=== PATIENT | female | born 1980 | race Caucasian/White ===

== ENCOUNTER 2022-02-22 09:13 | Outpatient (CLI) | payer BC, SELFPAY ==
[2022-02-22 12:40] LABS: Chloride* 107 mmol/L (96-114)
[2022-02-22 12:41] LABS: Potassium* 4.3 mmol/L (3.6-5.1); Sodium* 139 mmol/L (135-149)
[2022-02-22 12:43] LABS: Alkaline Phosphatase* 60 U/L (40-150); Aspartate Amino Transferase* 27 U/L (12-35); Bilirubin Total* 0.7 mg/dL (0.1-1.5); Blood Urea Nitrogen* 11 mg/dL (5-24); Carbon Dioxide* 25 mmol/L (20-32); Cholesterol* 227 mg/dL (90-199); Creatinine* 0.7 mg/dL (0.5-1.5); Estimated Glomerular Filt Rate 110 ml/min; Glucose* 92 mg/dL (60-115); Total Protein* 7.2 g/dL (6.0-8.3); Triglycerides* 98 mg/dL (40-149)
[2022-02-22 12:44] LABS: Alanine Aminotransferase* 22 U/L (4-35); Calcium* 9.1 mg/dL (8.4-10.6); HDL Cholesterol* 47 mg/dL (>=50); LDL Cholesterol Calculated 160 mg/dL (<100)
[2022-02-22 12:57] LABS: Vitamin D 25 Hydroxy* 22 ng/mL (30-80)
== END 2022-02-22 09:14 | disposition home or self-care (01) ==
PROVIDERS: PCP Internal Medicine; Visit Provider Internal Medicine
DX: Z01.419 Encounter for gynecological examination (general) (routine) without abnormal findings (principal); E78.00 Pure hypercholesterolemia, unspecified
CPT/HCPCS: 80053; 80061; 82306

== ENCOUNTER 2022-03-01 09:58 | Outpatient (CLI) | payer BC, SELFPAY ==
--- NOTE | 2022-03-01 10:00 | CRLHL7_ITS ---
For Patients: As a result of the Century Cures Act, medical imaging exams and procedure reports are released immediately into your electronic medical record. You may view this report before your referring provider. If you have questions, please contact your health care provider. Indication: left sided chest wall pain hx: Precancerous adenocarcinoma Technique: Post contrast CT chest. 75 cc Isovue 370 intravenous contrast. Please note that all CT scans at this facility use dose modulation, iterative reconstruction, and/or weight-based dosing when appropriate to reduce radiation dose to as low as reasonably achievable. Comparison: None Findings: 4 millimeter nodule within the lingula, . Peripheral nodule within the right middle lobe measuring 4 millimeters, . Linear areas of scarring are present within the lingula and right middle lobe. Bilateral breast implants are intact. The ribcage is also intact. No axillary, mediastinal or hilar adenopathy. Residual thymic tissue is present. Upper abdomen normal. Impression: Intact ribcage. No destructive lesion or fracture. No adenopathy. Intact implants. 4 millimeter nodule in the right middle lobe and 4 millimeter nodule in the lingula. 1 year follow up suggested. Scarring within the right middle lobe and lingula. Please note that all CT scans at this facility use dose modulation, iterative reconstruction, and/or weight-based dosing when appropriate to reduce radiation dose to as low as reasonably achievable. Dictated by Narciso Alcantar MD @ 03/05/2022 8:55:01 AM (Electronically Signed)
== END 2022-03-01 09:59 | disposition home or self-care (01) ==
PROVIDERS: PCP Internal Medicine; Visit Provider Internal Medicine
DX: R07.89 Other chest pain (principal); R91.8 Other nonspecific abnormal finding of lung field
CPT/HCPCS: 71260; Q9967

== ENCOUNTER 2023-04-09 13:20 | Outpatient (CLI) | payer BC, SELFPAY ==
--- OUTSIDE RECORDS SUMMARY | 2023-04-09 13:24 | XMS_ITS | Clinical Summary ---
Author Name Unknown Organization [facility] Address [address] [place] [address] Care Team Providers Care Vice President Underwriting Name Role Phone Unavailable Primary Care Provider Unavailabl e Source Comments Patient records contain information from all sites at [facility]. For routine questions regarding patient records, call [phone] during business hours, M-F 8:00 AM - 5:00 PM Central Time. Record requests for emergency care only can be directed to [phone] at any time.[facility] Allergies Active Allergy Reactions Criticality Noted Date Comments Flynn Pollen Other (see comments) Medium 09/02/2018 Running nose Medications Medication Sig Dispensed Refills Start Date End Date Status triamcinolone (KENALOG) 0.1 % cream Apply 1 application topically as needed. 11 08/11/2018 Active pimecrolimus (ELIDEL) 1 % cream Apply 1 application topically as needed. 1 07/22/2018 Active VENTOLIN HFA 90 mcg/actuation inhaler Take 2 puffs by mouth every 4 (four) hours as needed. 0 07/10/2018 Active loratadine (CLARITIN) 10 mg tablet Take 10 mg by mouth daily. 0 Active budesonide-formot Stella (SYMBICORT) 160-4.5 mcg/actuation inhaler Inhale 2 puffs daily. Rinse mouth with water after use to reduce aftertaste and incidence of candidiasis. Do not swallow. 0 Active clobetasoL (TEMOVATE) 0.05 % ointment Use 3 times weekly to upper vulva and 2 times weekly to perianal tissues. 60 g 3 04/03/2023 Active clobetasoL (TEMOVATE) 0.05 % ointment Use 3 times weekly to upper vulva and 2 times weekly to perianal tissues. 60 g 3 02/02/2022 04/03/2023 Discontinued (Reorder) Active Problems Problem Noted Date Diagnosed Date Hysterectomy Abdominal Status Post 01/28/2020 Overview: Added automatically from request for surgery [id number] Adenocarcinoma Cervix In Situ (Severe Dysplasia) 01/03/2020 Post Traumatic Stress Disorder Unspecified 08/26 Abnormal Pap Smear Cervix 08/15/2018 Overview: Added automatically from request for surgery [id number] Atypical Glandular Cells Uncertain Significance 08/15/2018 Overview: Added automatically from request for surgery [id number] Sinusitis Chronic 03/16/2016 Polyp Nasal 12/19/2015 Wheezing 12/19/2015 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 Rash (Primary Dx) 04/03/2023 Clinical Communication [facility] in [place], [place] [address] [place] [address] Jahaira John M.D. 03/27/2023 2:05 PM SENIOR DEVELOPER - 03/27/2023 11:59 PM SENIOR DEVELOPER Hospital Encounter Department of Radiology in [place], [place] [address] [place] [address] Jahaira John M.D. Screening Mammogram Breast Cancer Discharge Disposition: Home or Self Care 03/05/2023 Orders Only Department of Ophthalmology in [place], [place] [address] [place] [address] Pilar Ghosh M.D. 03/04/2023 Clinical Communication Department of Ophthalmology in [place], [place] [address] [place] [address] Pilar Ghosh M.D. MOHS to schedule 02/15/2023 2:10 PM SENIOR DEVELOPER Lab RST RO LMP [address] [place] [phone] Pilar Ghosh M.D. Lesion Eyelid 02/13/2023 Clinical Communication Department of Ophthalmology in [place], [place] [address] [place] [phone] Pilar Ghosh M.D. Referral for MOHS 02/13/2023 Clinical Communication Department of Ophthalmology in [place], [place] [address] [place] [phone] Pilar Ghosh M.D. 02/13/2023 Ancillary Procedure Department of Ophthalmology 02/12/2023 Clinical Communication Department of Ophthalmology in [place], [place] [address] [place] [address] Provider, Unknown Appt Request from Last 3 Months Immunizations Name Administration Dates Next Due 9vHPV 03/02/2022,06/21/2020,04/22/2020 DTaP (Infanrix, [employer]) 06/13/1983 H1N1 Inj 01/19/2009 HepB Adult 07/16/2022(Deferred: Other - check with pcp) Influenza, Unspecified 07/16/2022(Deferred: Suha ent Refused) Polio, Unspecified 06/13/1983 SARS-COV-2 (COVID-19) - PFIZ ER (12 years or older) 07/16/2022(Deferred: Patient decision) Tdap 07/10/2018 influenza vaccine quad (FLUZONE/FLUARIX) (6 months and older)(PF) 01/21/2020,09/02/2018,01/19/2009 Family History Medical History Relation Name Comments Coronary artery disease Father Father Colon cancer Maternal Grandfather Grandpa Colon polyps Maternal Grandfather Grandpa Breast cancer Maternal Grandmother Grandma Rheum arthritis Maternal Grandmother Grandma Asthma Mother Mom Diabetes Mother Mom Hypertension Mother Mom Liver cancer Mother Mom Liver disease Mother Mom Autoimmune Skin cancer Mother Mom Squamous cell carcinoma Mother Mom Stroke Mother Mom Coronary artery disease Paternal Grandfather Grandpa Coronary artery disease Paternal Grandmother Grandma No Known Problems Son 1 No Known Problems Son 2 Cervical cancer Neg Hx Endometrial cancer Neg Hx Ovarian cancer Neg Hx Relation Name Status Comments Father Father Maternal Grandfather Grandpa Maternal Grandmother Grandma Mother Mom Paternal Grandfather Grandpa Paternal Grandmother Grandma Son 1 Son 2 Social History Tobacco Use Types Packs/Day Years Used Date Smoking Tobacco: Never Smokeless Tobacco: Never Tobacco Cessation:Counseling Given: Not Answered Alcohol Use Standard Drinks/Week Comments Yes 1 (1 standard drink = 0.6 oz pur e alcohol) Approx once per month Humiliation, Afraid, Rape, and Kick questionnair e Answer Date Recorded Within the last year, have y ou been afraid of your partner or ex-partner? No 02/23/2022 Within the last year, have y ou been humiliated or emotionally abused in other ways by your partner or ex-partner? No Within the last year, have y ou been kicked, hit, slapped, or otherwise physically hurt by your partner or ex-partner? No 02/23/2022 Within the last year, have y ou been raped or forced to have any kind of sexual activity by your partner or ex-partner? No 02/23/2022 Social Connection and Isolat ion Panel [NHANES] Answer Date Recorded In a typical week, how many times do you talk on the phone with family, friends, or neighbors? More than three times a week 02/23/2022 How often do you get togethe r with friends or relatives? Once a week 02/23/2022 How often do you attend chur or tenriism services? 1 to 4 times per year 02/23/2022 Do you belong to any clubs o r organizations such as sabianist groups, unions, fraternal or athletic groups, or school groups? No 02/23/2022 How often do you attend meet ings of the clubs or organizations you belong to? Never 02/23/2022 Are you , , di vorced, , never , or living with a partner? Patient declined 02/23/2022 AUDIT-C Answer Date Recorded Q1: How often do you have a drink containing alc ohol? Monthly or less 02/23/2022 Q2: How many drinks containi ng alcohol do you have on a typical day when you are drinking? 1 or 2 02/23/2022 Q3: How often do you have si x or more drinks on one occasion? Never 02/23/2022 Overall Financial Resource Strain (CARDIA) Answe r Date Recorded How hard is it for you to pa y for the very basics like food, housing, medical care, and heating? Patient declined 02/23/2022 PHQ-2 Answer Date Recorded PHQ-2 Score 2 03/12/2019 [facility] - Occupational Stress Questionnaire Answer Date Recorded Do you feel stress - tense, restless, nervous, or anxious, or unable to sleep at night because your mind is troubled all the time - these days? Not at all 02/23/2022 Exercise Vital Sign Answer Date Recorde d On average, how many days pe r week do you engage in moderate to strenuous exercise (like a brisk walk)? 1 day 02/23/2022 On average, how many minutes do you engage in exercise at this level? 20 min 02/23/2022 Hunger Vital Sign Answer Date Recorded Within the past 12 months, y ou worried that your food would run out before you got the money to buy more. Never true 02/24/20 22 Within the past 12 months, t he food you bought just didn't last and you didn't have money to get more. Never true 02/23/2022 PRAPARE - Transportation Answer Date Re corded In the past 12 months, has l ack of transportation kept you from medical appointments or from getting medications? No 04/2021 In the past 12 months, has l ack of transportation kept you from meetings, work, or from getting things needed for daily living? No 02/23/2022 Housing Stability Vital Sign Answer Jakob e Recorded In the last 12 months, was t here a time when you were not able to pay the mortgage or rent on time? No 02/23/2022 In the last 12 months, how many places have you lived? 1 02/23/2022 In the last 12 months, was t here a time when you did not have a steady place to sleep or slept in a nursing home (including now)? No 02/23/2022 Nutrition Answer Date Recorded Nutrition: EVOO Fat Source Yes 02/23 On average, how many serving s of fruits and vegetables do you eat per day (serving size is equal to 1 cup or approximately the size of a tennis ball)? 0-1 02/23/2022 Dental Answer Date Recorded Dental: Regular Dentist Yes 02/24/20 Employment Answer Date Recorded Employment status Employed and actively working without restrictions 02/23/2022 Education Answer Date Recorded What is the highest level of school you have completed or the highest degree you have received? Professional school degree (e.g., , DDS, DVM, NAYELI) 09/01/2018 Sex and Gender Information Value Date Recorded Sex Assigned at Female 02/23/2022 10:41 AM SENIOR DEVELOPER Gender Identity Female 02/23/2022 10:41 AM SENIOR DEVELOPER Sexual Orientation Straight 02/23/2022 10 :41 AM SENIOR DEVELOPER Last Filed Vital Signs Vital Sign Reading Time Taken Comments Blood Pressure 138/84 05/18/2022 7:58 PM SENIOR DEVELOPER Pulse 88 05/18/2022 7:58 PM SENIOR DEVELOPER Temperature 36.6 ??C (97.9 ??F) 04/06/2020 9:19 AM CS T Respiratory Rate 16 05/18/2022 7:58 PM SENIOR DEVELOPER Oxygen Saturation 96% 05/18/2022 7:58 PM SENIOR DEVELOPER Inhaled Oxygen Concentration - - Weight 83.2 kg (183 lb 6.8 oz) 07/20/2022 3:51 P M CDT Height 165.9 cm (5' 5.32) 02/23/2022 12:[address] Body Mass Index 30.23 02/23/2022 12:47 PM SENIOR DEVELOPER Plan of Treatment Upcoming Encounters Date Type Department Care Team (Latest Contact Info) Description 04/10/2023 10:20 AM SENIOR DEVELOPER Comprehensive Visit Department of Dermatology in [place], [place] [address] [place] [phone] Rossi Duran M.D. [address] [place] [phone] 05/07/2023 10:30 AM SENIOR DEVELOPER Ancillary Procedure Department of Ophthalmology in [place], [place] [address] [place] [phone] Pilar Ghosh M.D. [address] [place] [phone] 05/07/2023 11:00 AM SENIOR DEVELOPER Comprehensive Visit Department of Ophthalmology in [place], [place] [address] [place] [phone] Pilar Ghosh M.D. [address] [place] [phone] 05/09/2023 8:00 AM SENIOR DEVELOPER Procedure visit Department of Dermatology in [place], [place] [address] [place] [phone] Mitchel Recinos M.D., M.S. [address] [place] [phone] 05/09/2023 1:10 PM SENIOR DEVELOPER Hospital Encounter [facility] [address] [place] [phone] Pilar Ghosh M.D. [address] [place] [phone] 05/21/2023 10:30 AM SENIOR DEVELOPER Ancillary Procedure Department of Ophthalmology in [address] [phone] Pilar Ghosh M.D. [address] [place] [phone] 05/21/2023 11:00 AM SENIOR DEVELOPER Office Visit Department of Ophthalmology in [place], [place] [address] [place] [phone] Pilar Ghosh M.D. 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 05/09/2023 1:10 PM SENIOR DEVELOPER Health Maintenance Due Date Last Done Comments Hepatitis B Vaccines (1 of 3 - 3-dose series) 1978 COVID-19 Vaccine (#1) 1978 Pneumococcal vaccine (0-64 y ears) (1 of 2 - PCV) 1984 Asthma Action Plan 11/25/2018 Asthma Control Test Questionnaire 11/25/2018 Influenza Vaccine (#1) 2022 , 09/02/2018, 01/19/2009 Depression Screening (Annual PHQ-2) 03/25/2023 Mammogram 03/27/2024 03/27/2023, 04/26, 03/02/2022, Additional history exists Lipid (Cholesterol) Screening 01/20/2025 01/21/2020 DTaP,Tdap,and Td Vaccines (3 - Td or Tdap) 07/10/2028 07/10/2018, 06/13/1983 Hepatitis C Screening Completed 01/21/2020 HPV Vaccines Completed 03/02/2022, 05/25, 04/22/2020 Medical Devices Implanted Type Area Shuttle Truck Driver Device Identifier Shelf Expiration Date Model / Serial / Lot Breast Implant Breast Implant Bilateral: Breast Ear-Dornhoffer [place] Partial Windows - Cruz [id number] Implanted:Qty: 1 on 02/13/2016 Ear Implant Other/Legacy - See Implant Description [facility] 687 / / Description:Device Manufactu rer - [facility]. Body Location - Other. Right. Device Status Text - AUD [id number]. Titanium Dornhoffer implant line PORP: MR Conditional 1.5T or 3T scanning. First level operating mode. Updated by Ruth Castillo, 03/08/22. Procedures Procedure Name Priority Date/Time Associated Diagnosis Comments BI BREAST SCREENING BILATERAL WITH TOMOSYNTHESIS RAD - Routine (most inpatients and all outpatients) 03/27/2023 2:42 PM SENIOR DEVELOPER Screening Mammogram Breast Cancer OPHTHALMOLOGY IMAGE EXAM Routine 02/13/2023 12:00 AM SENIOR DEVELOPER PATHOLOGY REVIEW OF OUTSIDE MATERIAL Routine 01/31/2023 9:20 AM SENIOR DEVELOPER Lesion Eyelid from Last 3 Months Results * BI Breast Screening Bilateral with Tomosynthesis (03/27/2023 2:42 PM SENIOR DEVELOPER) Anatomical Region Laterality Modality Breast, Breast Imaging RST L OS, Breast Imaging ARZ LOS, Breast Imaging FLA LOS Bilateral Mammography Impressions 03/28/2023 9:18 AM SENIOR DEVELOPER Negative. RECOMMENDATION: ??Annual Screening Mammogram ASSESSMENT: ??BI-RADS: 1: Negative. Narrative 03/28/2023 9:18 AM SENIOR DEVELOPER EXAM: ??BI BREAST SCREENING BILATERAL WITH TOMOSYNTHESIS Current study was evaluated with a Computer Aided Detection (CAD) system. INDICATION: ??Screening mammogram. COMPARISON: ??Prior exam(s) were available and reviewed for comparison. DENSITY: ??c. The breast(s) are heterogeneously dense, which may obscure small masses. FINDINGS: ??No findings of malignancy. ??No significant change since prior exam. Bilateral retropectoral saline implants. Procedure Note Yaa Tam M.D. - 03/28/2023 EXAM: BI BREAST SCREENING BILATERAL WITH TOMOSYNTHESIS Current study was evaluated with a Computer Aided Detection (CAD) system. INDICATION: Screening mammogram. COMPARISON: Prior exam(s) were available and reviewed for comparison. DENSITY: c. The breast(s) are heterogeneously dense, which may obscuresmall masses. FINDINGS: No findings of malignancy. No significant change since priorexam. Bilateral retropectoral saline implants. IMPRESSION: Negative. RECOMMENDATION: Annual Screening Mammogram ASSESSMENT: BI-RADS: 1: Negative. Jahaira John M.D. IMG BI PROCEDURES * Eyes Outside Images-Ophthalmology Image Exam (02/13/2023 12:00 AM SENIOR DEVELOPER) Narrative IIMS - 02/13/2023 8:25 AM SENIOR DEVELOPER This order has been created and auto-finalized to support the import of images acquired without order. The clinical documentation to support these images can be found on the encounter that produced images. Provider Not In System IMG NON RAD IMAGI NG PROCEDURES IIMS NA * Pathology Review of Outside Material (01/31/2023 9:20 AM SENIOR DEVELOPER) 02/26/2023 3:56 PM SENIOR DEVELOPER DTL Report electronically signed by Dimitry J. Flotte, M.D. I verify that I have examined all relevant slides/materi als for the specimen(s) and rendered or confirmed the diagnosis. 02/26/2023 3:56 PM SENIOR DEVELOPER DTL Material Received A. [id number]: Left eyelid ? 1 stained slide 02/26/2023 3:56 PM SENIOR DEVELOPER DTL Interpretation FINAL DIAGNOSIS Skin, left eyelid, biopsy ([id number]; 01/31/2023): Squamous cell carcinoma, well differentiate d, present at the inked biopsy margin. 02/26/2023 3:56 PM SENIOR DEVELOPER DTL Varies 01/31/2023 9:20 AM SENIOR DEVELOPER 02/22/2023 9:54 AM SENIOR DEVELOPER Pilar Ghosh M.D. LAB SURG PATH [facility]A [facility] [address] [place] [address], [facility] DTL [address] [place] [address] from Last 3 Months Advance Directives For more information, please contact: [phone] Documents on File Type Date Recorded Patient Supervisor [employer] Expl anation Advance Directives 11/25/2018 9:04 AM Thad h Care Directive Latest Code Status on File Code Status Date Activated Date Inactivated Comments Full Code 11/25/2018 5:47 PM 11/26/2018 1:07 AM Question Answer Comments Full Code: Discussed Code Status History Code Status Date Activated Date Inactivated Comments Full Code 11/25/2018 7:44 AM 11/25/2018 5:47 PM Question Answer Comments Full Code: Discussed Full Code 11/05/2018 6:55 AM 11/05/2018 12:31 PM Question Answer Comments Full Code: Discussed Full Code 08/21/2018 6:47 AM 08/21/2018 12:34 PM Question Answer Comments Full Code: Discussed Healthcare Agents on File Name Relationship Healthcare Agent Stacyct adam Communication J Luis Vazquez Health Care Agent Margaret Zarate [facility] Agent
--- OUTSIDE RECORDS SUMMARY | 2023-04-09 13:25 | XMS_ITS | Encounter Summary ---
Author Name Unknown Organization [facility] Address [address] [place] [address] Care Team Providers Care Loader Operator Supervisor Name Role Phone Unavailable Primary Care Provider Unavailabl e Reason for Visit * Reason Onset Date Comments Referral for MOHS 02/13/2023 Encounter Details Date Type Department Care Team (Latest Contact Info) Description 02/13/2023 Clinical Communication Department of Ophthalmology in [place], [place] [address] [place] [address] Pilar Ghosh M.D. [address] [place] [phone] Referral for MOHS Social History Tobacco Use Types Packs/Day Years Used Date Smoking Tobacco: Never Smokeless Tobacco: Never Alcohol Use Standard Drinks/Week Comments Yes 1 [...] How often do you attend chur or confucianism services? 1 to 4 times per year 02/23/2022 Do you belong to any clubs o r organizations such as mormonism groups, unions, fraternal or athletic groups, or [...] Answer Date Recorded PHQ-2 Score 2 03/12/2019 [facility] - Occupational Stress Questionnaire Answer Date [...] money to buy more. Never true 02/24/20 Within the past 12 months, t he [...] place to sleep or slept in a residential (including now)? No 02/23/2022 Nutrition Answer Date [...] you have received? Professional school degree (e.g., MD, DDS, DVM, NAYELI) 09/01/2018 Sex and Gender Information Value Date Recorded Sex Assigned at Female 02/23/2022 10:41 AM SHRINKING MACHINE OPERATOR Gender Identity Female 02/23/2022 10:41 AM SHRINKING MACHINE OPERATOR Sexual Orientation Straight 02/23/2022 10 :41 AM SHRINKING MACHINE OPERATOR documented as of this encounter Miscellaneous Notes * Telephone Encounter - Kathryn Rubin - 02/13/2023 10:47 AM CST Fax sent the [facility] about interpretation of path slides that were requested from [facility] in [place]. NKING MACHINE OPERATOR * Telephone Encounter - Claribel Rubincy Ron - 02/13/2023 10:19 AM CST Referral from Dr. Steffen Barker at [facility] in [place], [place]. Biopsy done at [facility] on 02/01/23 showed squamous cell carcinoma of left lower eyelid. Asked natural resource technician to do orders for patient to see oculoplastics and order for us to interpret outside path slides. NKING MACHINE OPERATOR documented in this encounter Plan of Treatment Upcoming Encounters Date Type Department Care Team (Latest Contact Info) Description 04/10/2023 10:20 AM SHRINKING MACHINE OPERATOR Comprehensive Visit Department of Dermatology in [place], [place] [address] [place] [phone] Rossi Duran M.D. [address] [place] [phone] 05/07/2023 10:30 AM SHRINKING MACHINE OPERATOR Ancillary Procedure Department of Ophthalmology in [place], [place] [address] [place] [phone] Pilar Ghosh M.D. [address] [place] [phone] 05/07/2023 11:00 AM SHRINKING MACHINE OPERATOR Comprehensive Visit Department of Ophthalmology in [place], [place] [address] [place] [phone] Pilar Ghosh M.D. [address] [place] [phone] 05/09/2023 8:00 AM SHRINKING MACHINE OPERATOR Procedure visit Department of Dermatology in [place], [place] [address] [place] [phone] Mitchel Recinos M.D., M.S. [address] [place] [phone] 05/09/2023 1:10 PM SHRINKING MACHINE OPERATOR Hospital Encounter [facility] [address] [place] [phone] Pilar Ghosh M.D. [address] [place] [phone] 05/21/2023 10:30 AM SHRINKING MACHINE OPERATOR Ancillary Procedure Department of Ophthalmology in [place], [place] [address] [place] [phone] Pilar Ghosh M.D. [address] [place] [phone] 05/21/2023 11:00 AM SHRINKING MACHINE OPERATOR Office Visit Department of Ophthalmology in [place], [place] [address] [place] [phone] Pilar Ghosh M.D. [address] [place] [phone] Scheduled Procedures Name Priority Associated Diagnoses Date/Ti me RECONSTRUCTION MOHS DEFECT Squamous Cell Carcinoma Of Skin Of Left Lower Eyelid Including [place]hus 05/09/2023 1:10 PM SHRINKING MACHINE OPERATOR documented as of this encounter Visit Diagnoses Not on filedocumented in this encounter Additional Health Concerns Assessment Noted Time PHQ-9 Depression Total Score: 3 03/12/20 19 10:56 AM SHRINKING MACHINE OPERATOR documented as of this encounter
--- OUTSIDE RECORDS SUMMARY | 2023-04-09 13:25 | XMS_ITS | Encounter Summary ---
Author Name Unknown Organization [facility] Address [address] [place] [address] Care Team Providers Care Cane Flume Watchman Name Role Phone Unavailable Primary Care Provider Unavailabl e Encounter Details Date Type Department Care Team (Late st Contact Info) Description 02/13/2023 Ancillary Procedure Department of Ophthalmology Social History Tobacco Use Types Packs/Day Years [...] 02/23/2022 How often do you attend chur ch or religion services? 1 to 4 times per year 02/23/2022 Do you belong to any clubs o r organizations such as buddhist groups, unions, fraternal or athletic groups, or [...] Answer Date Recorded PHQ-2 Score 2 03/12/2019 [facility] of Occupat ional [facility] - Occupational Stress Questionnaire Answer Date [...] place to sleep or slept in a chcf (including now)? No 02/23/2022 Nutrition Answer Date [...] Sex Assigned at Female 02/23/2022 10:41 AM SPECIAL EDUCATION PRESCHOOL TEACHER Gender Identity Female 02/23/2022 10:41 AM SPECIAL EDUCATION PRESCHOOL TEACHER Sexual Orientation Straight 02/23/2022 10 :41 AM SPECIAL EDUCATION PRESCHOOL TEACHER documented as of this encounter Plan of Treatment Upcoming Encounters Date Type Department Care Team (Latest Contact Info) Description 04/10/2023 10:20 AM SPECIAL EDUCATION PRESCHOOL TEACHER Comprehensive Visit Department of Dermatology in [place], [place] [address] [place] [phone] Rossi Duran M.D. [address] [place] [phone] 05/07/2023 10:30 AM SPECIAL EDUCATION PRESCHOOL TEACHER Ancillary Procedure Department of Ophthalmology in [place], [place] [address] [place] [phone] Pilar Ghosh M.D. [address] [place] [phone] 05/07/2023 11:00 AM SPECIAL EDUCATION PRESCHOOL TEACHER Comprehensive Visit Department of Ophthalmology in [place], [place] [address] [place] [phone] Pilar Ghosh M.D. [address] [place] [phone] 05/09/2023 8:00 AM SPECIAL EDUCATION PRESCHOOL TEACHER Procedure visit Department of Dermatology in [place], [place] [address] [place] [phone] Mitchel Recinos M.D., M.S. [address] [place] [phone] 05/09/2023 1:10 PM SPECIAL EDUCATION PRESCHOOL TEACHER Hospital Encounter [facility] [place] [address] [place] [phone] Pilar Ghosh M.D. [address] [place] [phone] 05/21/2023 10:30 AM SPECIAL EDUCATION PRESCHOOL TEACHER Ancillary Procedure Department of Ophthalmology in [address] [phone] Pilar Ghosh M.D. [address] [place] [phone] 05/21/2023 11:00 AM SPECIAL EDUCATION PRESCHOOL TEACHER Office Visit Department of Ophthalmology in [place], [place] [address] [place] [phone] Pilar Ghosh M.D. 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 The clinical documentation to support these images can be found on the encounter that produced images. Provider Not In System IMG NON RAD IMAGI NG PROCEDURES IIMS NA documented in this encounter Visit Diagnoses Not on filedocumented in this encounter Additional Health Concerns Assessment Noted Time PHQ-9 Depression Total Score: 3 03/12/20 19 10:56 AM SPECIAL EDUCATION PRESCHOOL TEACHER documented as of this encounter
--- OUTSIDE RECORDS SUMMARY | 2023-04-09 13:25 | XMS_ITS | Encounter Summary ---
Author Name Unknown Organization [facility] Address [address] [place] [address] Care Team Providers Care Box Sealing Machine Feeder Name Role Phone Unavailable Primary Care Provider Unavailabl e Reason for Referral * Outpatient (Routine) - Authorized Specialty Diagnoses / Procedures Referred By Joann saldana Referred To Contact Ophthalmology Pilar Ghosh M.D. [address] [place] [phone] [facility] Referral ID Status Reason Start Date Expiration Date V isits Requested Visits Authorized [id number] Authorized 03/05/2023 03/04/2026 1 1 Scheduling Instructions Please schedule a 7-10 day post op, DOS is 05/09/2023. N STUDIES PROGRAM CHAIR Encounter Details Date Type Department Care Team (Late st Contact Info) Description 03/05/2023 Orders Only Department of Ophthalmology in [place], [place] [address] [place] [phone] Pilar Ghosh M.D. [address] [place] [phone] Social History Tobacco Use Types Packs/Day Years [...] week 02/23/2022 How often do you attend [facility] or [facility] services? 1 to 4 times per year 02/23/2022 Do you belong to any clubs o r organizations such as yarsani groups, unions, fraternal or athletic groups, or [...] Answer Date Recorded PHQ-2 Score 2 03/12/2019 [facility] of Occupat ional Health - Occupational Stress [...] Sex Assigned at Female 02/23/2022 10:41 AM ASIAN STUDIES PROGRAM CHAIR Gender Identity Female 02/23/2022 10:41 AM ASIAN STUDIES PROGRAM CHAIR Sexual Orientation Straight 02/23/2022 10 :41 AM ASIAN STUDIES PROGRAM CHAIR documented as of this encounter Plan of Treatment Upcoming Encounters Date Type Department Care Team (Latest Contact Info) Description 04/10/2023 10:20 AM ASIAN STUDIES PROGRAM CHAIR Comprehensive Visit Department of Dermatology in [place], [place] [address] [place] [phone] Rossi Duran M.D. [address] [place] [phone] 05/07/2023 10:30 AM ASIAN STUDIES PROGRAM CHAIR Ancillary Procedure Department of Ophthalmology in [place], [place] [address] [place] [phone] Pilar Ghosh M.D. [address] [place] [phone] 05/07/2023 11:00 AM ASIAN STUDIES PROGRAM CHAIR Comprehensive Visit Department of Ophthalmology in [place], [place] [address] [place] [phone] Pilar Ghosh M.D. [address] [place] [phone] 05/09/2023 8:00 AM ASIAN STUDIES PROGRAM CHAIR Procedure visit Department of Dermatology in [address] [phone] Mitchel Recinos M.D., M.S. [address] [place] [phone] 05/09/2023 1:10 PM ASIAN STUDIES PROGRAM CHAIR Hospital [place] [facility] [place] [address] [place] [phone] Pilar Ghosh M.D. [address] [place] [phone] 05/21/2023 10:30 AM ASIAN STUDIES PROGRAM CHAIR Ancillary Procedure Department of Ophthalmology in [place], [place] [address] [place] [phone] Pilar Ghosh M.D. [address] [place] [phone] 05/21/2023 11:00 AM ASIAN STUDIES PROGRAM CHAIR Office Visit Department of Ophthalmology in [place], [place] [address] [place] [phone] Pilar Ghosh M.D. 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
--- OUTSIDE RECORDS SUMMARY | 2023-04-09 13:25 | XMS_ITS | Encounter Summary ---
Author Name Unknown Organization [facility] Address [address] [place] [address] Care Team Providers Care Tubular Products Fabricator Name Role Phone Unavailable Primary Care Provider Unavailabl e Reason for Referral * Outpatient (Routine) - Authorized Specialty Diagnoses / Procedures Referred By Contac t Referred To Contact Dermatology Diagnoses Lesion Eyelid Procedures CORNELIA MOHS 1-4 sites Pilar Ghosh M.D. 200 [place] [phone] [facility] Referral ID Status Reason Start Date Expiration Date V isits Requested Visits Authorized [id number] Authorized 02/13/2023 02/13/2024 1 1 URE MEDIA LABORATORY ASSISTANT * Outpatient (Routine) - Authorized Specialty Diagnoses / Procedures Referred By Joann saldana Referred To Contact Ophthalmology Diagnoses Lesion Eyelid Pilar Ghosh M.D. 200 [place] [phone] [facility] Referral ID Status Reason Start Date Expiration Date V isits Requested Visits Authorized [id number] Authorized 02/13/2023 02/13/2024 1 1 URE MEDIA LABORATORY ASSISTANT Encounter Details Date Type Department Care Team (Latest Contact Info) Description 02/13/2023 Clinical Communication Department of Ophthalmology in [place], [place] [address] [place] [phone] Pilar Ghosh M.D. 200 [place] [phone] Social History Tobacco Use Types Packs/Day Years [...] week 02/23/2022 How often do you attend [facility] or [facility] services? 1 to 4 times per year 02/23/2022 Do you belong to any clubs o r organizations such as yazdanism groups, unions, fraternal or athletic groups, or [...] Answer Date Recorded PHQ-2 Score 2 03/12/2019 [facility] - Occupational Stress Questionnaire Answer Date Recorded [...] place to sleep or slept in a retirement (including now)? No 02/23/2022 Nutrition Answer Date [...] Sex Assigned at Female 02/23/2022 10:41 AM CULTURE MEDIA LABORATORY ASSISTANT Gender Identity Female 02/23/2022 10:41 AM CULTURE MEDIA LABORATORY ASSISTANT Sexual Orientation Straight 02/23/2022 10 :41 AM CULTURE MEDIA LABORATORY ASSISTANT documented as of this encounter Miscellaneous Notes * Addendum Note - Ginger Bloom, C.O.A. - 02/13/2023 12:33 PM CSTAddended by: GINGER BLOOM on: 02/13/2023 12:33 PM Modules accepted: Orders URE MEDIA LABORATORY ASSISTANT documented in this encounter Plan of Treatment Upcoming Encounters Date Type Department Care Team (Latest Contact Info) Description 04/10/2023 10:20 AM CULTURE MEDIA LABORATORY ASSISTANT Comprehensive Visit Department of Dermatology in [place], [place] [address] [place] [phone] Rossi Duran M.D. [address] [place] [phone] 05/07/2023 10:30 AM CULTURE MEDIA LABORATORY ASSISTANT Ancillary Procedure Department of Ophthalmology in [place], [place] [address] [place] [phone] Pilar Ghosh M.D. [address] [place] [phone] 05/07/2023 11:00 AM CULTURE MEDIA LABORATORY ASSISTANT Comprehensive Visit Department of Ophthalmology in [place], [place] [address] [place] [phone] Pilar Ghosh M.D. [address] [place] [phone] 05/09/2023 8:00 AM CULTURE MEDIA LABORATORY ASSISTANT Procedure visit Department of Dermatology in [place], [place] [address] [place] [phone] Mitchel Recinos M.D., M.S. [address] [place] [phone] 05/09/2023 1:10 PM CULTURE MEDIA LABORATORY ASSISTANT [place] [facility] [place] [address] [place] [phone] Pilar Ghosh M.D. [address] [place] [phone] 05/21/2023 10:30 AM CULTURE MEDIA LABORATORY ASSISTANT Ancillary Procedure Department of Ophthalmology in [place], [place] [address] [place] [phone] Pilar Ghosh M.D. [address] [place] [phone] 05/21/2023 11:00 AM CULTURE MEDIA LABORATORY ASSISTANT Office Visit Department of Ophthalmology in [place], [place] [address] [place] [phone] Pilar Ghosh M.D. 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 I verify that I have examined all relevant slides/materi als for the specimen(s) and rendered or confirmed the diagnosis. 02/26/2023 3:56 PM CULTURE MEDIA LABORATORY ASSISTANT DTL Material Received A. [id number]: Left eyelid ? 1 stained slide 02/26/2023 3:56 PM CULTURE MEDIA LABORATORY ASSISTANT DTL Interpretation FINAL DIAGNOSIS Skin, left eyelid, biopsy ([id number]; 01/31/2023): Squamous cell carcinoma, well differentiate d, present at the inked biopsy margin. 02/26/2023 3:56 PM CULTURE MEDIA LABORATORY ASSISTANT DTL Varies 01/31/2023 9:20 AM CULTURE MEDIA LABORATORY ASSISTANT 02/22/2023 9:54 AM CULTURE MEDIA LABORATORY ASSISTANT Pilar Ghosh M.D. LAB SURG PATH ORDERA BL[facility] [address] [place] [address], [facility] DTL [address] [place] [address] documented in this encounter Visit Diagnoses Diagnosis Lesion Eyelid- Primary documented in this encounter Additional Health Concerns Assessment Noted Time PHQ-9 Depression Total Score: 3 03/12/20 19 10:56 AM CULTURE MEDIA LABORATORY ASSISTANT documented as of this encounter
--- OUTSIDE RECORDS SUMMARY | 2023-04-09 13:25 | XMS_ITS | Encounter Summary ---
Author Name Unknown Organization [facility] Address [address] [place] [address] Care Team Providers Care Rubber Engraver Name Role Phone Unavailable Primary Care Provider Unavailabl e Encounter Details Date Type Department Care Team (Late st Contact Info) Description 02/15/2023 2:10 PM GLIDING PILOT INSTRUCTOR Lab [facility] [address] [place] [phone] Pilar Ghosh M.D. [address] [place] [phone] Lesion Eyelid Social History Tobacco Use Types Packs/Day Years [...] often do you attend chur ch or druze services? 1 to 4 times per year 02/23/2022 Do you belong to any clubs o r organizations such as presybeterian groups, unions, fraternal or athletic groups, or [...] Answer Date Recorded PHQ-2 Score 2 03/12/2019 [facility] Answer Date [...] place to sleep or slept in a custodial (including now)? No 02/23/2022 Nutrition Answer Date [...] Sex Assigned at Female 02/23/2022 10:41 AM GLIDING PILOT INSTRUCTOR Gender Identity Female 02/23/2022 10:41 AM GLIDING PILOT INSTRUCTOR Sexual Orientation Straight 02/23/2022 10 :41 AM GLIDING PILOT INSTRUCTOR documented as of this encounter Plan of Treatment Upcoming Encounters Date Type Department Care Team (Latest Contact Info) Description 04/10/2023 10:20 AM GLIDING PILOT INSTRUCTOR Comprehensive Visit Department of Dermatology in [place], [place] 200 [place] [phone] Rossi Duran M.D. [address] [place] [phone] 05/07/2023 10:30 AM GLIDING PILOT INSTRUCTOR Ancillary Procedure Department of Ophthalmology in [place], [place] [address] [place] [phone] Pilar Ghosh M.D. [address] [place] [phone] 05/07/2023 11:00 AM GLIDING PILOT INSTRUCTOR Comprehensive Visit Department of Ophthalmology in [place], [place] [address] [place] [phone] Pilar Ghosh M.D. [address] [place] [phone] 05/09/2023 8:00 AM GLIDING PILOT INSTRUCTOR Procedure visit Department of Dermatology in [place], [place] [address] [place] [phone] Mitchel Recinos M.D., M.S. [address] [place] [phone] 05/09/2023 1:10 PM GLIDING PILOT INSTRUCTOR Hospital Encounter [facility] [place] [address] [place] [phone] Pilar Ghosh M.D. [address] [place] [phone] 05/21/2023 10:30 AM GLIDING PILOT INSTRUCTOR Ancillary Procedure Department of Ophthalmology in [place], [place] [address] [place] [phone] Pilar Ghosh M.D. [address] [place] [phone] 05/21/2023 11:00 AM GLIDING PILOT INSTRUCTOR Office Visit Department of Ophthalmology in [place], [place] [address] [place] [phone] Pilar Ghosh M.D. 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 I verify that I have examined all relevant slides/materi als for the specimen(s) and rendered or confirmed the diagnosis. 02/26/2023 3:56 PM GLIDING PILOT INSTRUCTOR DTL Material Received A. [id number]: Left eyelid ? 1 stained slide 02/26/2023 3:56 PM GLIDING PILOT INSTRUCTOR DTL Interpretation FINAL DIAGNOSIS Skin, left eyelid, biopsy ([id number]; 01/31/2023): Squamous cell carcinoma, well differentiate d, present at the inked biopsy margin. 02/26/2023 3:56 PM GLIDING PILOT INSTRUCTOR DTL Varies 01/31/2023 9:20 AM GLIDING PILOT INSTRUCTOR 02/22/2023 9:54 AM GLIDING PILOT INSTRUCTOR Pilar Ghosh M.D. LAB SURG PATH [facility] [address] [place] [address], [facility] DTL [address] [place] [address] documented in this encounter Visit Diagnoses Diagnosis Lesion Eyelid documented in this encounter Additional Health Concerns Assessment Noted Time PHQ-9 Depression Total Score: 3 03/12/20 10:56 AM GLIDING PILOT INSTRUCTOR documented as of this encounter
--- OUTSIDE RECORDS SUMMARY | 2023-04-09 13:25 | XMS_ITS ---
Author Name Unknown Organization [facility] Address [address] [place] [address] Care Team Providers Care Banquet Pilot Name Role Phone Unavailable Unavailable Unavailable Surgery Details Not on file Complications Check Surgery Details section. Procedure Estimated Blood Loss Check Surgery Details section. Procedure Findings Check Surgery Details section. Procedure Specimens Taken Check Surgery Details section.
--- OUTSIDE RECORDS SUMMARY | 2023-04-09 13:25 | XMS_ITS | Encounter Summary ---
Author Name Unknown Organization [facility] Address [address] [place] [address] Care Team Providers Care Testing And Regulating Chief Name Role Phone Unavailable Primary Care Provider Unavailabl e Encounter Details Date Type Department Care Team (Late st Contact Info) Description 04/03/2023 Clinical Communication [facility] in [place], [place] [address] [place] [phone] Jahaira John M.D. [address] [place] [phone] Social History Tobacco Use Types Packs/Day Years [...] often do you attend chur ch or synagogue services? 1 to 4 times per year 02/23/2022 Do you belong to any clubs o r organizations such as cheondoism groups, unions, fraternal or athletic groups, or [...] Answer Date Recorded PHQ-2 Score 2 03/12/2019 [facility] of Occupat ional [facility] - Occupational Stress Questionnaire Answer [...] place to sleep or slept in a prison (including now)? No 02/23/2022 Nutrition Answer Date [...] Sex Assigned at Female 02/23/2022 10:41 AM CUSTOMER SUPPORT ANALYST Gender Identity Female 02/23/2022 10:41 AM CUSTOMER SUPPORT ANALYST Sexual Orientation Straight 02/23/2022 10 :41 AM CUSTOMER SUPPORT ANALYST documented as of this encounter Miscellaneous Notes * Telephone Encounter - Coby Garcia - 04/03/2023 11:19 AM CST NikkynieshaCathryn is wondering if you could place a referral to Dermatology for her? She said the rash on her breast has not gotten better since you saw her last year. Coby Diaz OMER SUPPORT ANALYST documented in this encounter Plan of Treatment Upcoming Encounters Date Type Department Care Team (Latest Contact Info) Description 04/10/2023 10:20 AM CUSTOMER SUPPORT ANALYST Comprehensive Visit Department of Dermatology in [place], [place] [address] [place] [phone] Rossi Duran M.D. [address] [place] [phone] 05/07/2023 10:30 AM CUSTOMER SUPPORT ANALYST Ancillary Procedure Department of Ophthalmology in [place], [place] [address] [place] [phone] Pilar Ghosh M.D. [address] [place] [phone] 05/07/2023 11:00 AM CUSTOMER SUPPORT ANALYST Comprehensive Visit Department of Ophthalmology in [place], [place] [address] [place] [phone] Pilar Ghosh M.D. [address] [place] [phone] 05/09/2023 8:00 AM CUSTOMER SUPPORT ANALYST Procedure visit Department of Dermatology in [address] [phone] Mitchel Recinos M.D., M.S. [address] [place] [phone] 05/09/2023 1:10 PM CUSTOMER SUPPORT ANALYST Hospital [place] [facility] [place] [address] [place] [phone] Pilar Ghosh M.D. [address] [place] [phone] 05/21/2023 10:30 AM CUSTOMER SUPPORT ANALYST Ancillary Procedure Department of Ophthalmology in [place], [place] [address] [place] [phone] Pilar Ghosh M.D. [address] [place] [phone] 05/21/2023 11:00 AM CUSTOMER SUPPORT ANALYST Office Visit Department of Ophthalmology in [place], [place] [address] [place] [address] Pilar Ghosh M.D. 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
--- OUTSIDE RECORDS SUMMARY | 2023-04-09 13:25 | XMS_ITS | Encounter Summary ---
Author Name Unknown Organization [facility] Address [address] [place] [address] Care Team Providers Care Rn Admissions Name Role Phone Unavailable Primary Care Provider Unavailabl e Reason for Referral * Outpatient (Routine) - Closed Specialty Diagnoses / Procedures Referred By Joann saldana Referred To Contact Diagnoses Screening Mammogram Breast Cancer Procedures BI Breast Screening Bilateral with Tomosynthesis Jahaira John M.D. [address] [place] [address] [facility] Referral ID Status Reason Start Date Expiration Date Visits Re quested Visits Authorized [id number] Closed 07/20/2022 07/20/2023 1 1 D HUMAN RESOURCES MANAGER Reason for Visit * Outpatient (Routine) - Closed Specialty Diagnoses / Procedures Referred By Joann saldana Referred To Contact Diagnoses Screening Mammogram Breast Cancer Procedures BI Breast Screening Bilateral with Tomosynthesis Jahaira John M.D. [address] [place] [address] [facility] Referral ID Status Reason Start Date Expiration Date Visits Re quested Visits Authorized [id number] Closed 07/20/2022 07/20/2023 1 1 Encounter Details Date Type Department Care Team (Latest Contact Info) Description 03/27/2023 2:05 PM FIELD HUMAN RESOURCES MANAGER - 03/27/2023 11:59 PM FIELD HUMAN RESOURCES MANAGER Hospital Encounter Department of Radiology in [place], [place] [address] [place] [address] Jahaira John M.D. [address] [place] [phone] Screening Mammogram Breast Cancer Discharge Disposition: Home or Self Care Social History Tobacco Use Types Packs/Day Years [...] often do you attend chur ch or congregation services? 1 to 4 times per year 02/23/2022 Do you belong to any clubs o r organizations such as protestant groups, unions, fraternal or athletic groups, or [...] Answer Date Recorded PHQ-2 Score 2 03/12/2019 [facility] of Occupat ional Health - Occupational [...] place to sleep or slept in a senior living (including now)? No 02/23/2022 Nutrition Answer Date [...] Sex Assigned at Female 02/23/2022 10:41 AM FIELD HUMAN RESOURCES MANAGER Gender Identity Female 02/23/2022 10:41 AM FIELD HUMAN RESOURCES MANAGER Sexual Orientation Straight 02/23/2022 10 :41 AM FIELD HUMAN RESOURCES MANAGER documented as of this encounter Medications at Time of Discharge Medication Sig Dispensed Refills Start Date End Date budesonide-formoteroL (SYMBICORT) 160-4.5 mcg/actuation inhaler Inhale 2 puffs daily. Rinse mouth with water after use to reduce aftertaste and incidence of candidiasis. Do not swallow. 0 loratadine (CLARITIN) 10 mg tablet Take 10 mg by mouth daily. 0 pimecrolimus (ELIDEL) 1 % cream Apply 1 application topically as needed. 1 07/22/2018 triamcinolone (KENALOG) 0.1 % cream Apply 1 application topically as needed. 11 08/11/2018 VENTOLIN HFA 90 mcg/actuation inhaler Take 2 puffs by mouth every 4 (four) hours as needed. 0 07/10/2018 clobetasoL (TEMOVATE) 0.05 % ointment Use 3 times weekly to upper vulva and 2 times weekly to perianal tissues. 60 g 3 02/02/2022 04/03/2023 documented as of this encounter Plan of Treatment Upcoming Encounters Date Type Department Care Team (Latest Contact Info) Description 04/10/2023 10:20 AM FIELD HUMAN RESOURCES MANAGER Comprehensive Visit Department of Dermatology in [place], [place] [address] [place] [address] Rossi Duran M.D. [address] [place] [address] 05/07/2023 10:30 AM FIELD HUMAN RESOURCES MANAGER Ancillary Procedure Department of Ophthalmology in [place], [place] [address] [place] [phone] Pilar Ghosh M.D. [address] [place] [phone] 05/07/2023 11:00 AM FIELD HUMAN RESOURCES MANAGER Comprehensive Visit Department of Ophthalmology in [place], [place] [address] [place] [phone] Pilar Ghosh M.D. [address] [place] [phone] 05/09/2023 8:00 AM FIELD HUMAN RESOURCES MANAGER Procedure visit Department of Dermatology in [place], [place] [address] [place] [phone] Mitchel Recinos M.D., M.S. [address] [place] [phone] 05/09/2023 1:10 PM FIELD HUMAN RESOURCES MANAGER Hospital [facility] [place] [address] [place] [phone] Pilar Ghosh M.D. [address] [place] [phone] 05/21/2023 10:30 AM FIELD HUMAN RESOURCES MANAGER Ancillary Procedure Department of Ophthalmology in [place], [place] [address] [place] [phone] Pilar Ghosh M.D. [address] [place] [phone] 05/21/2023 11:00 AM FIELD HUMAN RESOURCES MANAGER Office Visit Department of Ophthalmology in [place], [place] [address] [place] [phone] Pilar Ghosh M.D. 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 05/09/2023 1:10 PM FIELD HUMAN RESOURCES MANAGER documented as of this encounter Procedures Procedure Name Priority Date/Time Associated Diagnosis Comments BI BREAST SCREENING BILATERAL WITH TOMOSYNTHESIS RAD - Routine (most inpatients and all outpatients) 03/27/2023 2:42 PM FIELD HUMAN RESOURCES MANAGER Screening Mammogram Breast Cancer documented in this encounter Results * BI Breast Screening Bilateral with Tomosynthesis (03/27/2023 2:42 PM FIELD HUMAN RESOURCES MANAGER) Anatomical Region Laterality Modality Breast, Breast Imaging RST L OS, Breast Imaging ARZ LOS, Breast Imaging FLA LOS Bilateral Mammography Impressions 03/28/2023 9:18 AM FIELD HUMAN RESOURCES MANAGER Negative. RECOMMENDATION: ??Annual Screening Mammogram ASSESSMENT: ??BI-RADS: 1: Negative. Narrative 03/28/2023 9:18 AM FIELD HUMAN RESOURCES MANAGER EXAM: ??BI BREAST SCREENING BILATERAL WITH TOMOSYNTHESIS [...] Screening Mammogram ASSESSMENT: BI-RADS: 1: Negative. Jahaira BARKER BI PROCEDURES documented in this encounter Visit Diagnoses Diagnosis Screening Mammogram Breast Cancer documented in this encounter Additional Health Concerns Assessment Noted Time PHQ-9 Depression Total Score: 3 03/12/20 19 10:56 AM FIELD HUMAN RESOURCES MANAGER documented as of this encounter
--- OUTSIDE RECORDS SUMMARY | 2023-04-09 13:25 | XMS_ITS | Referral Summary ---
Author Name Unknown Organization [facility] Address [address] [place] [address] Care Team Providers Care Quarter Backer Name Role Phone Unavailable Primary Care Provider Unavailabl e Source Comments Patient records contain information from all sites at [facility]. For routine questions regarding patient records, call [phone] during business hours, M-F 8:00 AM - 5:00 PM Central Time. Record requests for emergency care only can be directed to [phone] at any time.[facility] Encounters Date Type Department Care Team Description 04/03/2023 Orders Only Breast Diagnostic Clinic in [place], [place] [address] [place] [address] Jahaira John M.D. Rash (Primary Dx) 04/03/2023 Clinical Communication Breast Diagnostic Clinic in [place], [place] [address] [place] [address] Jahaira John M.D. 03/27/2023 2:05 PM ACCOUNTS CLERK - 03/27/2023 11:59 PM ACCOUNTS CLERK Hospital Encounter Department of Radiology in [place], [place] [address] [place] [address] Jahaira John M.D. Screening Mammogram Breast Cancer Discharge Disposition: Home or Self Care 03/05/2023 Orders Only Department of Ophthalmology in [place], [place] [address] [place] [address] Pilar Ghosh M.D. 03/04/2023 Clinical Communication Department of Ophthalmology in [place], [place] [address] [place] [address] Pilar Ghosh M.D. MOHS to schedule 02/15/2023 2:10 PM ACCOUNTS CLERK Lab [facility] [address] [place] [phone] Pilar Ghosh M.D. Lesion Eyelid 02/13/2023 Clinical Communication Department of Ophthalmology in [place], [place] [address] [place] [phone] Pilar Ghosh M.D. Referral for MOHS 02/13/2023 Clinical Communication Department of Ophthalmology in [place], [place] [address] [place] [phone] Pilar Ghosh M.D. 02/13/2023 Ancillary Procedure Department of Ophthalmology 02/12/2023 Clinical Communication Department of Ophthalmology in [place], [place] [address] [place] [address] Provider, Unknown Appt Request from Last 3 Months Allergies Active Allergy Reactions Criticality Noted Date Comments [place] Pollen Other (see comments) Medium 09/02/2018 Running [...] Overview: Added automatically from request for surgery [id number] Adenocarcinoma Cervix In Situ (Severe Dysplasia) 01/03/2020 Post Traumatic Stress Disorder Unspecified 08/26 Abnormal Pap Smear Cervix 08/15/2018 Overview: Added automatically from request for surgery [id number] Atypical Glandular Cells Uncertain Significance 08/15/2018 Overview: Added automatically from request for surgery [id number] Sinusitis Chronic 03/16/2016 Polyp Nasal 12/19/2015 Wheezing 12/19/2015 Loss Hearing 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.] week 02/23/2022 How often do you attend [facility] or taoism services? 1 to 4 times per year 02/23/2022 Do you belong to any clubs o r organizations such as nondenominational groups, unions, fraternal or athletic groups, or [...] Answer Date Recorded PHQ-2 Score 2 03/12/2019 [facility] [place] of Occupat ional Health - Occupational Stress [...] place to sleep or slept in a intermediate (including now)? No 02/23/2022 Nutrition Answer Date [...] Sex Assigned at Female 02/23/2022 10:41 AM ACCOUNTS CLERK Gender Identity Female 02/23/2022 10:41 AM ACCOUNTS CLERK Sexual Orientation Straight 02/23/2022 10 :41 AM ACCOUNTS CLERK Last Filed Vital Signs Vital Sign Reading Time Taken Comments Blood Pressure 138/84 05/18/2022 7:58 PM ACCOUNTS CLERK Pulse 88 05/18/2022 7:58 PM ACCOUNTS CLERK Temperature 36.6 ??C (97.9 ??F) 04/06/2020 9:19 AM CS T Respiratory Rate 16 05/18/2022 7:58 PM ACCOUNTS CLERK Oxygen Saturation 96% 05/18/2022 7:58 PM ACCOUNTS CLERK Inhaled Oxygen Concentration - - Weight 83.2 kg (183 lb 6.8 oz) 07/20/2022 3:51 P M CDT Height 165.9 cm (5' 5.32) 02/23/2022 12:[address] Body Mass Index 30.23 02/23/2022 12:47 PM ACCOUNTS CLERK Plan of Treatment Upcoming Encounters Date Type Department Care Team (Latest Contact Info) Description 04/10/2023 10:20 AM ACCOUNTS CLERK Comprehensive Visit Department of Dermatology in [place], [place] [address] [place] [phone] Rossi Duran M.D. [address] [place] [phone] 05/07/2023 10:30 AM ACCOUNTS CLERK Ancillary Procedure Department of Ophthalmology in [address] [phone] Pilar Ghosh M.D. [address] [place] [phone] 05/07/2023 11:00 AM ACCOUNTS CLERK Comprehensive Visit Department of Ophthalmology in [place], [place] [address] [place] [phone] Pilar Ghosh M.D. [address] [place] [phone] 05/09/2023 8:00 AM ACCOUNTS CLERK Procedure visit Department of Dermatology in [place], [place] [address] [place] [phone] Mitchel Recinos M.D., M.S. [address] [place] [phone] 05/09/2023 1:10 PM ACCOUNTS CLERK Hospital Encounter [facility] [place] [address] [place] [phone] Pilar Ghosh M.D. [address] [place] [phone] 05/21/2023 10:30 AM ACCOUNTS CLERK Ancillary Procedure Department of Ophthalmology in [place], [place] [address] [place] [phone] Pilar Ghosh M.D. [address] [place] [phone] 05/21/2023 11:00 AM ACCOUNTS CLERK Office Visit Department of Ophthalmology in [place], [place] [address] [place] [address] Pilar Ghosh M.D. 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 Body Location - Other. Right. Device Status Text - AUD [id number]. Titanium Dornhoffer implant line PORP: MR Conditional 1.5T or 3T scanning. First level operating mode. Updated by Ruth Castillo, 03/08/22. Procedures Procedure Name Priority Date/Time Associated Diagnosis Comments BI BREAST SCREENING BILATERAL WITH TOMOSYNTHESIS RAD - Routine (most inpatients and all outpatients) 03/27/2023 2:42 PM ACCOUNTS CLERK Screening Mammogram Breast Cancer OPHTHALMOLOGY IMAGE EXAM Routine 02/13/2023 12:00 AM ACCOUNTS CLERK PATHOLOGY REVIEW OF OUTSIDE MATERIAL Routine 01/31/2023 9:20 AM ACCOUNTS CLERK Lesion Eyelid from Last 3 Months Results * BI Breast Screening Bilateral with Tomosynthesis (03/27/2023 2:42 PM ACCOUNTS CLERK) Anatomical Region Laterality Modality Breast, Breast Imaging RST L OS, Breast Imaging ARZ LOS, Breast Imaging FLA LOS Bilateral Mammography Impressions 03/28/2023 9:18 AM ACCOUNTS CLERK Negative. RECOMMENDATION: ??Annual Screening Mammogram ASSESSMENT: ??BI-RADS: 1: Negative. Narrative 03/28/2023 9:18 AM ACCOUNTS CLERK EXAM: ??BI BREAST SCREENING BILATERAL WITH TOMOSYNTHESIS [...] ASSESSMENT: BI-RADS: 1: Negative. Jahaira John M.D. IMVikas BI PROCEDURES * Eyes Outside Images-Ophthalmology Image Exam (02/13/2023 12:00 AM ACCOUNTS CLERK) Narrative IIMS - 02/13/2023 8:25 AM ACCOUNTS CLERK This order has been created and auto-finalized to support the import of images acquired without order. The clinical documentation to support these images can be found on the encounter that produced images. Provider Not In System IMG NON RAD IMAGI NG PROCEDURES IIMS NA * Pathology Review of Outside Material (01/31/2023 9:20 AM ACCOUNTS CLERK) 02/26/2023 3:56 PM ACCOUNTS CLERK DTL Report electronically signed by Dimitry Bunhc M.D. I verify that I have examined all relevant slides/materi als for the specimen(s) and rendered or confirmed the diagnosis. 02/26/2023 3:56 PM ACCOUNTS CLERK DTL Material Received A. [id number]: Left eyelid ? 1 stained slide 02/26/2023 3:56 PM ACCOUNTS CLERK DTL Interpretation FINAL DIAGNOSIS Skin, left eyelid, biopsy ([id number]; 01/31/2023): Squamous cell carcinoma, well differentiate d, present at the inked biopsy margin. 02/26/2023 3:56 PM ACCOUNTS CLERK DTL Varies 01/31/2023 9:20 AM ACCOUNTS CLERK 02/22/2023 9:54 AM ACCOUNTS CLERK Pilar Ghosh M.D. LAB SURG PATH ORDERA BLES [facility] [address] [place] [address], [facility] DTL [address] [place] [address] from Last 3 Months Advance Directives For more information, please contact: [phone] Documents on File Type Date Recorded Patient Piper Helper Expl anation Advance Directives 11/25/2018 9:04 AM Healt h Care Directive Latest Code Status on [...] Agents on File Name Relationship Healthcare Agent [facility] Communication [facility] Health Care Agent Margaret Zarate [facility] re Agent
--- OUTSIDE RECORDS SUMMARY | 2023-04-09 13:25 | XMS_ITS | Encounter Summary ---
Author Name Unknown Organization [facility] Address [address] [place] [address] Care Team Providers Care Skid Worker Name Role Phone Unavailable Primary Care Provider Unavailabl e Reason for Referral * Outpatient (Routine) - Authorized Specialty Diagnoses / Procedures Referred By Joann t Referred To Contact Dermatology Diagnoses Jahaira Pickering M.D. [address] [phone] [facility] Referral ID Status Reason Start Date Expiration Date V isits Requested Visits Authorized [id number] Authorized 04/03/2023 04/02/2024 1 1 H RICE TENDER Encounter Details Date Type Department Care Team (Late st Contact Info) Description 04/03/2023 Orders Only Breast Diagnostic Clinic in [place], [place] [address] [place] [address] Jahaira John M.D. [address] [phone] Rash (Primary Dx) Social History Tobacco Use Types Packs/Day Years [...] week 02/23/2022 How often do you attend [facility] or episcopal services? 1 to 4 times per year 02/23/2022 Do you belong to any clubs o r organizations such as mosque groups, unions, fraternal or athletic groups, or [...] Answer Date Recorded PHQ-2 Score 2 03/12/2019 [facility] of Occupat ional Health - Occupational Stress [...] Sex Assigned at Female 02/23/2022 10:41 AM ROUGH RICE TENDER Gender Identity Female 02/23/2022 10:41 AM ROUGH RICE TENDER Sexual Orientation Straight 02/23/2022 10 :41 AM ROUGH RICE TENDER documented as of this encounter Plan of Treatment Upcoming Encounters Date Type Department Care Team (Latest Contact Info) Description 04/10/2023 10:20 AM ROUGH RICE TENDER Comprehensive Visit Department of Dermatology in [place], [place] [address] [place] [phone] Rossi Duran M.D. [address] [place] [phone] 05/07/2023 10:30 AM ROUGH RICE TENDER Ancillary Procedure Department of Ophthalmology in [place], [place] [address] [place] [phone] Pilar Ghosh M.D. [address] [place] [phone] 05/07/2023 11:00 AM ROUGH RICE TENDER Comprehensive Visit Department of Ophthalmology in [place], [place] [address] [place] [phone] Pilar Ghosh M.D. [address] [place] [phone] 05/09/2023 8:00 AM ROUGH RICE TENDER Procedure visit Department of Dermatology in [place], [place] [address] [place] [phone] Mitchel Recinos M.D., M.S. [address] [place] [phone] 05/09/2023 1:10 PM ROUGH RICE TENDER Hospital [facility] [place] [address] [place] [phone] Pilar Ghosh M.D. [address] [place] [phone] 05/21/2023 10:30 AM ROUGH RICE TENDER Ancillary Procedure Department of Ophthalmology in [place], [place] [address] [place] [address] [place] [phone] Pilar Ghosh M.D. [address] [place] [address] 05/21/2023 11:00 AM ROUGH RICE TENDER Office Visit Department of Ophthalmology in [place], [place] [address] [place] [address] Pilar Ghosh M.D. 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
--- OUTSIDE RECORDS SUMMARY | 2023-04-09 13:25 | XMS_ITS | Encounter Summary ---
Author Name Unknown Organization [facility] Address [address] [place] [address] Care Team Providers Care Wrapping Machine Operator Name Role Phone Unavailable Primary Care Provider Unavailabl e Reason for Visit * Reason Onset Date Comments MOHS to schedule 03/04/2023 Encounter Details Date Type Department Care Team (Latest Contact Info) Description 03/04/2023 Clinical Communication Department of Ophthalmology in [place], [place] [address] [place] [address] Pilar Ghosh M.D. [address] [place] [phone] MOHS to schedule Social History Tobacco Use Types Packs/Day Years [...] How often do you attend chur or samaritan services? 1 to 4 times per year 02/23/2022 Do you belong to any clubs o r organizations such as buddhism groups, unions, fraternal or athletic groups, or [...] Answer Date Recorded PHQ-2 Score 2 03/12/2019 [facility] of Occupat ionri Health - Occupational Stress Questionnaire Answer Date [...] Sex Assigned at Female 02/23/2022 10:41 AM CONTINUOUS MINING MACHINE OPERATOR Gender Identity Female 02/23/2022 10:41 AM CONTINUOUS MINING MACHINE OPERATOR Sexual Orientation Straight 02/23/2022 10 :41 AM CONTINUOUS MINING MACHINE OPERATOR documented as of this encounter Plan of Treatment Upcoming Encounters Date Type Department Care Team (Latest Contact Info) Description 04/10/2023 10:20 AM CONTINUOUS MINING MACHINE OPERATOR Comprehensive Visit Department of Dermatology in [place], [place] [address] [place] [address] Rossi Duran M.D. [address] [place] [address] 05/07/2023 10:30 AM CONTINUOUS MINING MACHINE OPERATOR Ancillary Procedure Department of Ophthalmology in [place], [place] [address] [place] [phone] Pilar Ghosh M.D. [address] [place] [phone] 05/07/2023 11:00 AM CONTINUOUS MINING MACHINE OPERATOR Comprehensive Visit Department of Ophthalmology in [place], [place] [address] [place] [phone] Pilar Ghosh M.D. [address] [place] [phone] 05/09/2023 8:00 AM CONTINUOUS MINING MACHINE OPERATOR Procedure visit Department of Dermatology in [place], [place] [address] [place] [phone] Mitchel Recinos M.D., M.S. [address] [place] [phone] 05/09/2023 1:10 PM CONTINUOUS MINING MACHINE OPERATOR [facility] [place] [address] [place] [phone] Pilar Ghosh M.D. [address] [place] [phone] 05/21/2023 10:30 AM CONTINUOUS MINING MACHINE OPERATOR Ancillary Procedure Department of Ophthalmology in [place], [place] [address] [place] [phone] Pilar Ghosh M.D. [address] [place] [phone] 05/21/2023 11:00 AM CONTINUOUS MINING MACHINE OPERATOR Office Visit Department of Ophthalmology in [place], [place] [address] [place] [phone] Pilar Ghosh M.D. 

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
--- OUTSIDE RECORDS SUMMARY | 2023-04-09 13:26 | XMS_ITS | Encounter Summary ---
Author Name Unknown Organization [facility] Address [address] [place] [address] Care Team Providers Care Rn Examiner Name Role Phone Unavailable Primary Care Provider Unavailabl e Reason for Visit * Reason Onset Date Comments Pre-visit Intake 07/16/2022 * Appointment Request (Routine) - Closed Specialty Diagnoses / Procedures Referred By Joann saldana Referred To Contact Breast Clinic Referral ID Status Reason Start Date Expiration Date Visits Re quested Visits Authorized [id number] Closed 04/06/2022 04/06/2023 1 1 Encounter Details Date Type Department Care Team (Latest Contact Info) Description 07/16/2022 10:30 AM CDT Clinical Communication Virtual Review in [place], [place] [address] [place] [address] Pre-visit Intake Social History Tobacco Use Types Packs/Day Years [...] How often do you attend chur or scientology services? 1 to 4 times per year 02/23/2022 Do you belong to any clubs o r organizations such as spiritism groups, unions, fraternal or athletic groups, or [...] Date Recorded PHQ-2 Score 2 03/12/2019 [facility] - Occupational [...] Sex Assigned at Female 02/23/2022 10:41 AM PAPER SHEETER Gender Identity Female 02/23/2022 10:41 AM PAPER SHEETER Sexual Orientation Straight 02/23/2022 10 :41 AM PAPER SHEETER documented as of this encounter Plan of Treatment Upcoming Encounters Date Type Department Care Team (Latest Contact Info) Description 04/10/2023 10:20 AM PAPER SHEETER Comprehensive Visit Department of Dermatology in [place], [place] [address] [place] [address] Rossi Duran M.D. [address] [place] [phone] 05/07/2023 10:30 AM PAPER SHEETER Ancillary Procedure Department of Ophthalmology in [place], [place] [address] [place] [phone] Pilar Ghosh M.D. [address] [place] [phone] 05/07/2023 11:00 AM PAPER SHEETER Comprehensive Visit Department of Ophthalmology in [place], [place] [address] [place] [phone] Pilar Ghosh M.D. [address] [place] [phone] 05/09/2023 8:00 AM PAPER SHEETER Procedure visit Department of Dermatology in [place], [place] [address] [place] [phone] Mitchel Recinos M.D., M.S. [address] [place] [phone] 05/09/2023 1:10 PM PAPER SHEETER Hospital Encounter [facility] [place] [address] [place] [phone] Pilar Ghosh M.D. [address] [place] [phone] 05/21/2023 10:30 AM PAPER SHEETER Ancillary Procedure Department of Ophthalmology in [place], [place] [address] [place] [phone] Pilar Ghosh M.D. [address] [place] [phone] 05/21/2023 11:00 AM PAPER SHEETER Office Visit Department of Ophthalmology in [place], [place] [address] [place] [phone] Pilar Ghosh M.D. 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
--- OUTSIDE RECORDS SUMMARY | 2023-04-09 13:26 | XMS_ITS | Encounter Summary ---
Author Name Unknown Organization [facility] Address [address] [place] [address] Care Team Providers Care Oriental Rug Repairer Name Role Phone Unavailable Primary Care Provider Unavailabl e Reason for Visit * Reason Onset Date Comments Appt Request 02/12/2023 Encounter Details Date Type Department Care Team (Latest Contact Info) Description 02/12/2023 Clinical Communication Department of Ophthalmology in [place], [place] [address] [place] [address] Provider, Unknown Appt Request Social History Tobacco Use Types Packs/Day Years [...] often do you attend chur ch or holiness services? 1 to 4 times per year 02/23/2022 Do you belong to any clubs o r organizations such as roman catholic groups, unions, fraternal or athletic groups, or [...] Answer Date Recorded PHQ-2 Score 2 03/12/2019 [facility] - Occupational Stress Questionnaire Answer [...] place to sleep or slept in a fci (including now)? No 02/23/2022 Nutrition Answer Date [...] Sex Assigned at Female 02/23/2022 10:41 AM TECHNOLOGY ENGINEER Gender Identity Female 02/23/2022 10:41 AM TECHNOLOGY ENGINEER Sexual Orientation Straight 02/23/2022 10 :41 AM TECHNOLOGY ENGINEER documented as of this encounter Plan of Treatment Upcoming Encounters Date Type Department Care Team (Latest Contact Info) Description 04/10/2023 10:20 AM TECHNOLOGY ENGINEER Comprehensive Visit Department of Dermatology in [place], [place] [address] [place] [address] Rossi Duran M.D. [address] [place] [address] 05/07/2023 10:30 AM TECHNOLOGY ENGINEER Ancillary Procedure Department of Ophthalmology in [place], [place] [address] [place] [phone] Pilar Ghosh M.D. [address] [place] [phone] 05/07/2023 11:00 AM TECHNOLOGY ENGINEER Comprehensive Visit Department of Ophthalmology in [place], [place] [address] [place] [phone] Pilar Ghosh M.D. [address] [place] [phone] 05/09/2023 8:00 AM TECHNOLOGY ENGINEER Procedure visit Department of Dermatology in [place], [place] [address] [place] [phone] Mitchel Recinos M.D., M.S. [address] [place] [phone] 05/09/2023 1:10 PM TECHNOLOGY ENGINEER Hospital Encounter [facility] [place] [address] [place] [phone] Pilar Ghosh M.D. [address] [place] [phone] 05/21/2023 10:30 AM TECHNOLOGY ENGINEER Ancillary Procedure Department of Ophthalmology in [address] [phone] Pilar Ghosh M.D. [address] [place] [phone] 05/21/2023 11:00 AM TECHNOLOGY ENGINEER Office Visit Department of Ophthalmology in [address] [phone] Pilar Ghosh M.D. 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
--- OUTSIDE RECORDS SUMMARY | 2023-04-09 13:26 | XMS_ITS | Encounter Summary ---
Author Name Unknown Organization [facility] Address [address] [place] [address] Care Team Providers Care Service Director Name Role Phone Unavailable Primary Care Provider Unavailabl e Reason for Referral * MRI/CAT/PET Scan (Routine) - Closed Specialty Diagnoses / Procedures Referred By Joann saldana Referred To Contact Radiology Diagnoses Dense Breasts, Unspecified Symptoms Breast Implant Breast Status Post Procedures MR Breast Bilateral without and with IV Contrast Jahaira John M.D. [address] [place] [address] [facility] Referral ID Status Reason Start Date Expiration Date Visits Re quested Visits Authorized [id number] Closed 03/08/2022 03/08/2023 1 1 ITURE AND BEDDING INSPECTOR Reason for Visit * MRI/CAT/PET Scan (Routine) - Closed Specialty Diagnoses / Procedures Referred By Joann saldana Referred To Contact Radiology Diagnoses Dense Breasts, Unspecified Symptoms Breast Implant Breast Status Post Procedures MR Breast Bilateral without and with IV Contrast Jahaira John M.D. [address] [place] [address] [facility] Referral ID Status Reason Start Date Expiration Date Visits Re quested Visits Authorized [id number] Closed 03/08/2022 03/08/2023 1 1 Encounter Details Date Type Department Care Team (Latest Contact Info) Description 05/18/2022 6:08 PM FURNITURE AND BEDDING INSPECTOR - 05/18/2022 11:59 PM FURNITURE AND BEDDING INSPECTOR Hospital Encounter Department of Radiology, [facility], in [place], [place] [address] [place] [address] Jahaira John M.D. [address] [place] [address] [place] [address] Density Breast; Symptoms Breast; Implant Breast Status Post Discharge Disposition: Home or Self Care Social [...] often do you attend chur ch or christianity services? 1 to 4 times per year [...] Answer Date Recorded PHQ-2 Score 2 03/12/2019 [facility] of Occupat ional Health - Occupational Stress [...] Sex Assigned at Female 02/23/2022 10:41 AM FURNITURE AND BEDDING INSPECTOR Gender Identity Female 02/23/2022 10:41 AM FURNITURE AND BEDDING INSPECTOR Sexual Orientation Straight 02/23/2022 10 :41 AM FURNITURE AND BEDDING INSPECTOR documented as of this encounter Last Filed Vital Signs Vital Sign Reading Time Taken Comments Blood Pressure 138/84 05/18/2022 7:58 PM FURNITURE AND BEDDING INSPECTOR Pulse 88 05/18/2022 7:58 PM FURNITURE AND BEDDING INSPECTOR Temperature - - Respiratory Rate 16 05/18/2022 7:58 PM FURNITURE AND BEDDING INSPECTOR Oxygen Saturation 96% 05/18/2022 7:58 PM FURNITURE AND BEDDING INSPECTOR Inhaled Oxygen Concentration - - Weight - - Height - - Body Mass Index - - documented in this encounter Medications at Time of Discharge [...] 02/02/2022 04/03/2023 documented as of this encounter Nursing Notes * Sharron Thakkar M.S.N., R.N. - 05/18/2022 6:45 PM CST Pt is reporting nausea and dizziness after MRI. These symptoms were experienced after sitting up and walking out of MRI scanning room. Denies any SOB or itching. Frontal headache. Dr Avila Radiologist present to evaluate. Taking juice and fluids ITURE AND BEDDING INSPECTOR * Sharron Thakkar M.S.N., R.N. - 05/18/2022 6:45 PM CST Pt reports resolving symptoms. Ambulating without dizziness. Mild headache but reports resolution of dizziness and nausea. Dr Avila approved discharge. Pt instructions to drink fluids and report to ED if return of symptoms. ITURE AND BEDDING INSPECTOR documented in this encounter Plan of Treatment Upcoming Encounters Date Type Department Care Team (Latest Contact Info) Description 04/10/2023 10:20 AM FURNITURE AND BEDDING INSPECTOR Comprehensive Visit Department of Dermatology in [place], [place] [address] [place] [address] Rossi Duran M.D. [address] [place] [phone] 05/07/2023 10:30 AM FURNITURE AND BEDDING INSPECTOR Ancillary Procedure Department of Ophthalmology in [place], [place] [address] [place] [phone] Pilar Ghosh M.D. [address] [place] [phone] 05/07/2023 11:00 AM FURNITURE AND BEDDING INSPECTOR Comprehensive Visit Department of Ophthalmology in [place], [place] [address] [place] [address] Pilar Ghosh M.D. [address] [place] [phone] 05/09/2023 8:00 AM FURNITURE AND BEDDING INSPECTOR Procedure visit Department of Dermatology in [place], [place] [address] [place] [phone] Mitchel Recinos M.D., M.S. [address] [place] [phone] 05/09/2023 1:10 PM FURNITURE AND BEDDING INSPECTOR Hospital Encounter [place] [place] [address] [place] [phone] Pilar Ghosh M.D. [address] [place] [phone] 05/21/2023 10:30 AM FURNITURE AND BEDDING INSPECTOR Ancillary Procedure Department of Ophthalmology in [place], [place] [address] [place] [phone] Pilar Ghosh M.D. [address] [place] [phone] 05/21/2023 11:00 AM FURNITURE AND BEDDING INSPECTOR Office Visit Department of Ophthalmology in [place], [place] [address] [place] [phone] Pilar Ghosh M.D. 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 05/09/2023 1:10 PM FURNITURE AND BEDDING INSPECTOR documented as of this encounter Procedures Procedure Name Priority Date/Time Associated Diagnosis Comments MR BREAST BILATERAL WITHOUT AND WITH IV CONTRAST RAD - Routine (most inpatients and all outpatients) 05/18/2022 7:26 PM FURNITURE AND BEDDING INSPECTOR Density Breast Symptoms Breast Implant Breast Status Post documented in this encounter Results * MR Breast Bilateral without and with IV Contrast (05/18/2022 7:26 PM FURNITURE AND BEDDING INSPECTOR) Anatomical Region Laterality Modality Breast, Breast Imaging RST L OS, Breast Imaging ARZ LOS, Breast Imaging FLA LOS Bilateral Magnetic Resonance 05/21/2022 7:28 AM FURNITURE AND BEDDING INSPECTOR Impressions 05/21/2022 8:33 AM FURNITURE AND BEDDING INSPECTOR No MRI findings of malignancy. RECOMMENDATION: ??Clinical Management Recommendation continued clinical management of the patient's right breast pain. ASSESSMENT: ??BI-RADS: 2: Benign. Narrative 05/21/2022 8:33 AM FURNITURE AND BEDDING INSPECTOR EXAM: ??MR BREAST BILATERAL WITHOUT AND WITH IV CONTRAST INDICATION: ??Problem solving HISTORY: ??41-year-old female with approximately 3 month history of right breast pain. Additional history of bilateral retropectoral saline implants. HORMONAL STATUS: ??S/p hysterectomy No hormones. COMPARISON: ??Prior exam(s) were available and reviewed for comparison. TECHNIQUE: ??Dynamic enhanced protocol using IV contrast administration with T1 and T2-weighted images and CAD image analysis. FIBROGLANDULAR TISSUE: ??c. Heterogeneous fibroglandular tissue. ?? BACKGROUND PARENCHYMAL ENHANCEMENT: ??d. Marked FINDINGS: RIGHT BREAST: ??No MRI findings of malignancy in the right breast. Marked background parenchymal enhancement. Intact retropectoral saline implant. RIGHT AXILLA: ??No right axillary lymphadenopathy. ?? LEFT BREAST: ??No MRI findings of malignancy in the left breast. Marked background parenchymal enhancement. Intact retropectoral saline implant. LEFT AXILLA: ??No left axillary lymphadenopathy. ?? CHEST WALL: ??No internal mammary lymphadenopathy. ?? Procedure Note Mireya Ramirez M.D. - 05/21/2022 EXAM: MR BREAST BILATERAL WITHOUT AND WITH IV CONTRAST INDICATION: Problem solving HISTORY: 41-year-old female with approximately 3 month history of rightbreast pain. Additional history of bilateral retropectoral saline implants. HORMONAL STATUS: S/p hysterectomy No hormones. COMPARISON: Prior exam(s) were available and reviewed for comparison. TECHNIQUE: Dynamic enhanced protocol using IV contrast administrationwith T1 and T2-weighted images and CAD image analysis. FIBROGLANDULAR TISSUE: c. Heterogeneous fibroglandular tissue. BACKGROUND PARENCHYMAL ENHANCEMENT: d. Marked FINDINGS: RIGHT BREAST: No MRI findings of malignancy in the right breast. Markedbackground parenchymal enhancement. Intact retropectoral saline implant. RIGHT AXILLA: No right axillary lymphadenopathy. LEFT BREAST: No MRI findings of malignancy in the left breast. Markedbackground parenchymal enhancement. Intact retropectoral saline implant. LEFT AXILLA: No left axillary lymphadenopathy. CHEST WALL: No internal mammary lymphadenopathy. IMPRESSION: No MRI findings of malignancy. RECOMMENDATION: Clinical Management Recommendation continued clinical management of the patient's right breastpain. ASSESSMENT: BI-RADS: 2: Benign. Jahaira BARKER MRI PROCEDURES documented in this encounter Visit Diagnoses Diagnosis Dense Breasts, Unspecified Symptoms Breast Implant Breast Status Post documented in this encounter Administered Medications Inactive Administered Medications - up to 3 most recent administrations Medication Order MAR Action Action Date Dose Rate Site gadobutrol injection 0.01-30 mL (GADAVIST) 0.01-30 mL, intravenous, Once in imaging, contrast, Starting on Sat05/18/22 at 1821, For 1 dose, Imaging Protocol Orders, Dose per Radiant Medication Guidelines Intrathecal doses greater than 0.25 mL not recommended. Given 05/18/2022 7:17 PM FURNITURE AND BEDDING INSPECTOR 8 mL sodium chloride (PF) 0.9 % injection 1-100 mL 1-100 mL, intravenous, Once, On Sat05/18/22 at 1830, For 1 dose, Imaging Protocol Orders Given 05/18/2022 7:17 PM FURNITURE AND BEDDING INSPECTOR 20 mL documented in this encounter Additional Health Concerns Assessment Noted Time PHQ-9 Depression Total Score: 3 03/12/20 19 10:56 AM FURNITURE AND BEDDING INSPECTOR documented as of this encounter
== END 2023-04-09 13:21 | disposition home or self-care (01) ==
PROVIDERS: PCP Internal Medicine; Visit Provider Internal Medicine
DX: E78.00 Pure hypercholesterolemia, unspecified (principal)
CPT/HCPCS: 80053; 80061

== ENCOUNTER 2023-04-19 07:48 | Outpatient (CLI) | payer BC, SELFPAY ==
--- OUTSIDE RECORDS SUMMARY | 2023-04-19 07:50 | XMS_ITS | Clinical Summary ---
Author Name Unknown Organization [facility] Address [address] [place] [address] Care Team Providers Care Hospitality Specialist Name Role Phone Unavailable Primary Care Provider Unavailabl e Source Comments Patient records contain information from all sites at [facility]. For routine questions regarding patient records, call [phone] during business hours, M-F 8:00 AM - 5:00 PM Central Time. Record requests for emergency care only can be directed to [phone] at any time.[facility] Allergies Active Allergy Reactions Criticality Noted Date Comments Bentonia Pollen Other (see comments) Medium 09/02/2018 Running [...] perianal tissues. 60 g 3 04/03/2023 Active ketoconazole (NIZORAL) 2 % shampooIndication s:Intertrigo,Derm atitis Seborrheic Apply 1 Application topically 3 (three) times a week. Apply to damp skin, lather, leave on 5 minutes, and rinse 120 mL 11 04/10/2023 Active calcipotriene 0.005 %, 5-FU 5 % - lipodermIndicatio ns:Keratosis Actinic Apply topically 2 (two) times a day for 5 days. Apply to face 30 g 11 04/10/2023 05/11/2023 Active clobetasoL (TEMOVATE) 0.05 % ointment Use 3 times weekly to upper vulva and 2 times weekly to perianal tissues. 60 g 3 02/02/2022 04/03/2023 Discontinued (Reorder) Active Problems Problem Noted Date Diagnosed Date Hysterectomy Abdominal Status Post 01/28/2020 Overview: Added automatically from request for surgery [id number] Adenocarcinoma Cervix In Situ (Severe Dysplasia) 01/03/2020 Post Traumatic Stress Disorder Unspecified 08/26 Abnormal Pap Smear Cervix 08/15/2018 Overview: Added automatically from request for surgery [id number] Atypical Glandular Cells Uncertain Significance 08/15/2018 Overview: Added automatically from request for surgery [id number] Sinusitis Chronic 03/16/2016 Polyp Nasal 12/19/2015 Wheezing 12/19/2015 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 Intertrigo (Primary Dx); Dermatitis; Dermatitis Seborrheic; Keratosis Actinic; Cancer Skin Squamous Cell Personal History 04/03/2023 Orders Only [facility] in [place], [place] [address] [place] [address] Jahaira John M.D. Rash (Primary Dx) 04/03/2023 Clinical Communication [facility] Clinic in [place], [place] [address] [place] [phone] Jahaira John M.D. 03/27/2023 2:05 PM AUTOMOTIVE WINDOW TINTER - 03/27/2023 11:59 PM AUTOMOTIVE WINDOW TINTER Hospital Encounter Department of Radiology in [place], [place] [address] [place] [phone] Jahaira John M.D. Screening Mammogram Breast Cancer Discharge Disposition: Home or Self Care 03/05/2023 Orders Only Department of Ophthalmology in [place], [place] [address] [place] [phone] Pilar Ghosh M.D. 03/04/2023 Clinical Communication Department of Ophthalmology in [place], [place] [address] [place] [phone] Pilar Ghosh M.D. MOHS to schedule 02/15/2023 2:10 PM AUTOMOTIVE WINDOW TINTER Lab RST RO LMP [address] [place] [phone] Pilar Ghosh M.D. Lesion Eyelid 02/13/2023 Clinical Communication Department of Ophthalmology in [place], [place] [address] [place] [phone] Pilar Ghosh M.D. Referral for MOHS 02/13/2023 Clinical Communication Department of Ophthalmology in [place], [place] [address] [place] [phone] Pilar Ghosh M.D. 02/13/2023 Ancillary Procedure Department of Ophthalmology 02/12/2023 Clinical Communication Department of Ophthalmology in [place], [place] [address] [place] [phone] Provider, Unknown Appt Request from Last 3 [...] pur e alcohol) Approx once per month Moblicationities Answer Date Recorded In the past 12 months has th e [employer], gas, oil, or water [employer] threatened to shut off services in your home? No 04/10/2023 Humiliation, Afraid, Rape, and Kick questionnair e [...] often do you attend chur ch or worship services? 1 to 4 times per year 02/23/2022 Do you belong to any clubs o r organizations such as gnosticist groups, unions, fraternal or athletic groups, or [...] Answer Date Recorded PHQ-2 Score 2 03/12/2019 [facility] of Occupat ional Health - Occupational Stress [...] exercise (like a brisk walk)? 1 day 04/10/2023 On average, how many minutes do you engage in exercise at this level? 10 min 04/10/2023 Hunger Vital Sign Answer Date Recorded Within the past 12 months, y ou worried that your food would run out before you got the money to buy more. Never true 04/10/19 24 Within the past 12 months, t he food you bought just didn't last and you didn't have money to get more. Never true 04/10/2023 PRAPARE - Transportation Answer Date Re corded In the past 12 months, has l ack of transportation kept you from medical appointments or from getting medications? No 03/25 In the past 12 months, has l ack of transportation kept you from meetings, work, or from getting things needed for daily living? No 04/10/2023 Nutrition Answer Date Recorded Nutrition: EVOO Fat Source Yes 04/10 On average, how many serving s of fruits and vegetables do you eat per day (serving size is equal to 1 cup or approximately the size of a tennis ball)? 0-2 04/10/2023 Dental Answer Date Recorded Dental: Regular Dentist Yes 02/24/20 Employment Answer Date Recorded Employment status Employed and actively working without restrictions 04/10/2023 Housing Stability Answer Date Recorded What is your living situation today? I have a [facility] place to live 04/10/2023 Education Answer Date Recorded What is the highest level of school you have completed or the highest degree you have received? Professional school degree (e.g., MD, DDS, DVM, NAYELI) 09/01/2018 Sex and Gender Information Value Date Recorded Sex Assigned at Female 02/23/2022 10:41 AM AUTOMOTIVE WINDOW TINTER Gender Identity Female 02/23/2022 10:41 AM AUTOMOTIVE WINDOW TINTER Sexual Orientation Straight 02/23/2022 10 :41 AM AUTOMOTIVE WINDOW TINTER Last Filed Vital Signs Vital Sign Reading Time Taken Comments Blood Pressure 138/84 05/18/2022 7:58 PM AUTOMOTIVE WINDOW TINTER Pulse 88 05/18/2022 7:58 PM AUTOMOTIVE WINDOW TINTER Temperature 36.6 ??C (97.9 ??F) 04/06/2020 9:19 AM CS T Respiratory Rate 16 05/18/2022 7:58 PM AUTOMOTIVE WINDOW TINTER Oxygen Saturation 96% 05/18/2022 7:58 PM AUTOMOTIVE WINDOW TINTER Inhaled Oxygen Concentration - - Weight 83.2 kg (183 lb 6.8 oz) 07/20/2022 3:51 P M CDT Height 165.9 cm (5' 5.32) 02/23/2022 12:[address] Body Mass Index 30.23 02/23/2022 12:47 PM AUTOMOTIVE WINDOW TINTER Plan of Treatment Upcoming Encounters Date Type Department Care Team (Latest Contact Info) Description 05/07/2023 10:30 AM AUTOMOTIVE WINDOW TINTER Ancillary Procedure Department of Ophthalmology in [place], [place] [address] [place] [phone] Pilar Ghosh M.D. [address] [place] [phone] 05/07/2023 11:00 AM AUTOMOTIVE WINDOW TINTER Comprehensive Visit Department of Ophthalmology in [place], [place] [address] [place] [phone] Pilar Ghosh M.D. [address] [place] [phone] 05/09/2023 8:00 AM AUTOMOTIVE WINDOW TINTER Procedure visit Department of Dermatology in [place], [place] [address] [place] [phone] Mitchel Recinos M.D., M.S. [address] [place] [phone] 05/09/2023 1:10 PM AUTOMOTIVE WINDOW TINTER Hospital Encounter [facility] [place] [address] [place] [phone] Pilar Ghosh M.D. [address] [place] [phone] 05/21/2023 10:30 AM AUTOMOTIVE WINDOW TINTER Ancillary Procedure Department of Ophthalmology in [address] [phone] Pilar Ghosh M.D. [address] [place] [phone] 05/21/2023 11:00 AM AUTOMOTIVE WINDOW TINTER Office Visit Department of Ophthalmology in [place], [place] [address] [place] [phone] Pilar Ghosh M.D. 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 Body Location - Other. Right. Device Status Text - AUD [id number]. Titanium Dornhoffer implant line PORP: MR Conditional 1.5T or 3T scanning. First level operating mode. Updated by Ruth Castillo, 03/08/22. Procedures Procedure Name Priority Date/Time Associated Diagnosis Comments BI BREAST SCREENING BILATERAL WITH TOMOSYNTHESIS RAD - Routine (most inpatients and all outpatients) 03/27/2023 2:42 PM AUTOMOTIVE WINDOW TINTER Screening Mammogram Breast Cancer OPHTHALMOLOGY IMAGE EXAM Routine 02/13/2023 12:00 AM AUTOMOTIVE WINDOW TINTER PATHOLOGY REVIEW OF OUTSIDE MATERIAL Routine 01/31/2023 9:20 AM AUTOMOTIVE WINDOW TINTER Lesion Eyelid from Last 3 Months Results * BI Breast Screening Bilateral with Tomosynthesis (03/27/2023 2:42 PM AUTOMOTIVE WINDOW TINTER) Anatomical Region Laterality Modality Breast, Breast Imaging RST L OS, Breast Imaging ARZ LOS, Breast Imaging FLA LOS Bilateral Mammography Impressions 03/28/2023 9:18 AM AUTOMOTIVE WINDOW TINTER Negative. RECOMMENDATION: ??Annual Screening Mammogram ASSESSMENT: ??BI-RADS: 1: Negative. Narrative 03/28/2023 9:18 AM AUTOMOTIVE WINDOW TINTER EXAM: ??BI BREAST SCREENING BILATERAL WITH TOMOSYNTHESIS [...] Screening Mammogram ASSESSMENT: BI-RADS: 1: Negative. Jahaira oJhn M.D. IMG BI PROCEDURES * Eyes Outside Images-Ophthalmology Image Exam (02/13/2023 12:00 AM AUTOMOTIVE WINDOW TINTER) Narrative [facility] - 02/13/2023 8:25 AM AUTOMOTIVE WINDOW TINTER This order has been created and auto-finalized to support the import of images acquired without order. The clinical documentation to support these images can be found on the encounter that produced images. Provider Not In System IMG NON RAD IMAGI NG PROCEDURES Performing Organization Address City/State/[facility] Co de Phone Number [facility] NA * Pathology Review of Outside Material (01/31/2023 9:20 AM AUTOMOTIVE WINDOW TINTER) 02/26/2023 3:56 PM AUTOMOTIVE WINDOW TINTER DTL Report electronically signed by Dimitry Bunch M.D. I verify that I have examined all relevant slides/materi als for the specimen(s) and rendered or confirmed the diagnosis. 02/26/2023 3:56 PM AUTOMOTIVE WINDOW TINTER DTL Material Received A. [id number]: Left eyelid ? 1 stained slide 02/26/2023 3:56 PM AUTOMOTIVE WINDOW TINTER DTL Interpretation FINAL DIAGNOSIS Skin, left eyelid, biopsy ([id number]; 01/31/2023): Squamous cell carcinoma, well differentiate d, present at the inked biopsy margin. 02/26/2023 3:56 PM AUTOMOTIVE WINDOW TINTER DTL Varies 01/31/2023 9:20 AM AUTOMOTIVE WINDOW TINTER 02/22/2023 9:54 AM AUTOMOTIVE WINDOW TINTER Pilar Ghosh M.D. LAB SURG PATH ORDERA BLES Performing Organization Address City/[facility]/ZIP Co de Phone Number [facility] [address] [place] [address], [facility] [address] [place] [address] from Last 3 Months Advance Directives For more information, please contact: [phone] Documents on File Type Date Recorded Patient Optical Glass Etcher Expl anation Advance Directives 11/25/2018 9:04 AM Thad ellison Care Directive Latest Code Status on File [...] Agents on File Name Relationship Healthcare Agent Relationshi p Communication J Luis [facility] Health Care Agent Margaret Zarate [facility] re Agent
--- OUTSIDE RECORDS SUMMARY | 2023-04-19 07:51 | XMS_ITS | Encounter Summary ---
Author Name Unknown Organization [facility] Address [address] [place] [phone] Care Team Providers Care Windmill Technician Name Role Phone Unavailable Primary Care Provider Unavailabl e Reason for Referral * Outpatient (Routine) - Authorized Specialty Diagnoses / Procedures Referred By Joann saldana Referred To Contact Ophthalmology Pilar Ghosh M.D. [address] [place] [phone] [facility] Referral ID Status Reason Start Date Expiration Date V isits Requested Visits Authorized [id number] Authorized 03/05/2023 03/04/2026 1 1 Scheduling Instructions Please schedule a 7-10 day post op, DOS is 05/09/2023. ICE CAR OPERATOR Encounter Details Date Type Department Care Team (Late st Contact Info) Description 03/05/2023 Orders Only Department of Ophthalmology in [place], [place] [address] [place] [phone] Pilar Ghosh M.D. [address] [place] [phone] Social History Tobacco Use Types Packs/Day Years [...] week 02/23/2022 How often do you attend [facility] or islam services? 1 to 4 times per year 02/23/2022 Do you belong to any clubs o r organizations such as oriental orthodox groups, unions, fraternal or athletic groups, or [...] Answer Date Recorded PHQ-2 Score 2 03/12/2019 [facility] of Occupat ional Health - Occupational Stress [...] place to sleep or slept in a [facility] (including now)? No 02/23/2022 Nutrition Answer Date [...] Sex Assigned at Female 02/23/2022 10:41 AM SERVICE CAR OPERATOR Gender Identity Female 02/23/2022 10:41 AM SERVICE CAR OPERATOR Sexual Orientation Straight 02/23/2022 10 :41 AM SERVICE CAR OPERATOR documented as of this encounter Plan of Treatment Upcoming Encounters Date Type Department Care Team (Latest Contact Info) Description 05/07/2023 10:30 AM SERVICE CAR OPERATOR Ancillary Procedure Department of Ophthalmology in [place], [place] [address] [place] [phone] Pilar Ghosh M.D. [address] [place] [phone] 05/07/2023 11:00 AM SERVICE CAR OPERATOR Comprehensive Visit Department of Ophthalmology in [place], [place] [address] [place] [phone] Pilar Ghosh M.D. [address] [place] [phone] 05/09/2023 8:00 AM SERVICE CAR OPERATOR Procedure visit Department of Dermatology in [place], [place] [address] [place] [phone] Mitchel Recinos M.D., M.S. [address] [place] [phone] 05/09/2023 1:10 PM SERVICE CAR OPERATOR Hospital Encounter [facility] [place] [address] [place] [phone] Pilar Ghosh M.D. [address] [place] [phone] 05/21/2023 10:30 AM SERVICE CAR OPERATOR Ancillary Procedure Department of Ophthalmology in [place], [place] [address] [place] [phone] Pilar Ghosh M.D. [address] [place] [phone] 05/21/2023 11:00 AM SERVICE CAR OPERATOR Office Visit Department of Ophthalmology in [place], [place] [address] [place] [phone] Pilar Ghosh M.D. 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
--- OUTSIDE RECORDS SUMMARY | 2023-04-19 07:51 | XMS_ITS | Encounter Summary ---
Author Name Unknown Organization [facility] Address [address] [place] [address] Care Team Providers Care Insert Operator Name Role Phone Unavailable Primary Care Provider Unavailabl e Reason for Referral * Outpatient (Routine) - Closed Specialty Diagnoses / Procedures Referred By Joann saldana Referred To Contact Dermatology Diagnoses Jahaira Pickering M.D. [address] [phone] [facility] Referral ID Status Reason Start Date Expiration Date Visits Re quested Visits Authorized [id number] Closed 04/03/2023 04/02/2024 1 1 LE HOUSE PUMPER Encounter Details Date Type Department Care Team (Late st Contact Info) Description 04/03/2023 Orders Only Breast Diagnostic Clinic in [place], [place] [address] [place] [phone] Jahaira John M.D. [address] [phone] Rash (Primary Dx) Social History Tobacco [...] week 02/23/2022 How often do you attend [facility] or confucianism services? 1 to 4 times per year 02/23/2022 Do you belong to any clubs o r organizations such as jewish groups, unions, fraternal or athletic groups, or [...] Answer Date Recorded PHQ-2 Score 2 03/12/2019 [facility] of Occupat ional Health - [...] place to sleep or slept in a half-way (including now)? No 02/23/2022 Nutrition Answer Date [...] Sex Assigned at Female 02/23/2022 10:41 AM BOTTLE HOUSE PUMPER Gender Identity Female 02/23/2022 10:41 AM BOTTLE HOUSE PUMPER Sexual Orientation Straight 02/23/2022 10 :41 AM BOTTLE HOUSE PUMPER documented as of this encounter Plan of Treatment Upcoming Encounters Date Type Department Care Team (Latest Contact Info) Description 05/07/2023 10:30 AM BOTTLE HOUSE PUMPER Ancillary Procedure Department of Ophthalmology in [place], [place] [address] [place] [phone] Pilar Ghosh M.D. [address] [place] [phone] 05/07/2023 11:00 AM BOTTLE HOUSE PUMPER Comprehensive Visit Department of Ophthalmology in [place], [place] [address] [place] [phone] Pilar Ghosh M.D. [address] [place] [phone] 05/09/2023 8:00 AM BOTTLE HOUSE PUMPER Procedure visit Department of Dermatology in [place], [place] [address] [place] [phone] Mitchel Recinos M.D., M.S. [address] [place] [phone] 05/09/2023 1:10 PM BOTTLE HOUSE PUMPER Hospital Encounter [facility] [place] [address] [place] [phone] Pilar Ghosh M.D. [address] [place] [phone] 05/21/2023 10:30 AM BOTTLE HOUSE PUMPER Ancillary Procedure Department of Ophthalmology in [place], [place] [address] [place] [phone] Pilar Ghosh M.D. [address] [place] [phone] 05/21/2023 11:00 AM BOTTLE HOUSE PUMPER Office Visit Department of Ophthalmology in [place], [place] [address] [place] [phone] Pilar Ghosh M.D. 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
--- OUTSIDE RECORDS SUMMARY | 2023-04-19 07:51 | XMS_ITS | Encounter Summary ---
Author Name Unknown Organization [facility] Address [address] [place] [address] Care Team Providers Care Sausage Wrapper Name Role Phone Unavailable Primary Care Provider Unavailabl e Reason for Visit * Reason Onset Date Comments Appt Request 02/12/2023 Encounter Details Date Type Department Care Team (Latest Contact Info) Description 02/12/2023 Clinical Communication Department of Ophthalmology in [place], [place] [address] [place] [address] Provider, Unknown Appt Request Social History Tobacco [...] often do you attend chur ch or temple services? 1 to 4 times per year 02/23/2022 Do you belong to any clubs o r organizations such as rastafarian groups, unions, fraternal or athletic groups, or [...] Answer Date Recorded PHQ-2 Score 2 03/12/2019 [facility] - Occupational Stress Questionnaire Answer [...] Sex Assigned at Female 02/23/2022 10:41 AM COFFEE SAMPLER Gender Identity Female 02/23/2022 10:41 AM COFFEE SAMPLER Sexual Orientation Straight 02/23/2022 10 :41 AM COFFEE SAMPLER documented as of this encounter Plan of Treatment Upcoming Encounters Date Type Department Care Team (Latest Contact Info) Description 05/07/2023 10:30 AM COFFEE SAMPLER Ancillary Procedure Department of Ophthalmology in [place], [place] [address] [place] [phone] Pilar Ghosh M.D. 200 [place] [phone] 05/07/2023 11:00 AM COFFEE SAMPLER Comprehensive Visit Department of Ophthalmology in [place], [place] [address] [place] [phone] Pilar Ghosh M.D. [address] [place] [phone] 05/09/2023 8:00 AM COFFEE SAMPLER Procedure visit Department of Dermatology in [place], [place] [address] [place] [phone] Mitchel Recinos M.D., M.S. [address] [place] [phone] 05/09/2023 1:10 PM COFFEE SAMPLER Hospital Encounter [facility] [place] [address] [place] [phone] Pilar Ghosh M.D. [address] [place] [phone] 05/21/2023 10:30 AM COFFEE SAMPLER Ancillary Procedure Department of Ophthalmology in [place], [place] [address] [place] [phone] Pilar Ghosh M.D. [address] [place] [phone] 05/21/2023 11:00 AM COFFEE SAMPLER Office Visit Department of Ophthalmology in [address] [phone] Pilar Ghosh M.D. 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
--- OUTSIDE RECORDS SUMMARY | 2023-04-19 07:51 | XMS_ITS | Encounter Summary ---
Author Name Unknown Organization [facility] Address [address] [place] [address] Care Team Providers Care Make Ready Worker Name Role Phone Unavailable Primary Care Provider Unavailabl e Reason for Referral * Outpatient (Routine) - Closed Specialty Diagnoses / Procedures Referred By Joann saldana Referred To Contact Diagnoses Screening Mammogram Breast Cancer Procedures BI Breast Screening Bilateral with Tomosynthesis Jahaira John M.D. [address] [facility] [place] [phone] [facility] Referral ID Status Reason Start Date Expiration Date Visits Re quested Visits Authorized [id number] Closed 07/20/2022 07/20/2023 1 1 ERCIAL SERVICE TECHNICIAN Reason for Visit * Outpatient (Routine) - Closed Specialty Diagnoses / Procedures Referred By Joann saldana Referred To Contact Diagnoses Screening Mammogram Breast Cancer Procedures BI Breast Screening Bilateral with Tomosynthesis Jahaira John M.D. [address] [place] [address] [facility] Referral ID Status Reason Start Date Expiration Date Visits Re quested Visits Authorized [id number] Closed 07/20/2022 07/20/2023 1 1 Encounter Details Date Type Department Care Team (Latest Contact Info) Description 03/27/2023 2:05 PM COMMERCIAL SERVICE TECHNICIAN - 03/27/2023 11:59 PM COMMERCIAL SERVICE TECHNICIAN Hospital Encounter Department of Radiology in [place], [place] [address] [place] [address] Jahaira John M.D. [address] [place] [phone] Screening Mammogram Breast Cancer Discharge Disposition: [...] often do you attend chur ch or amish services? 1 to 4 times per year 02/23/2022 Do you belong to any clubs o r organizations such as scientologist groups, unions, fraternal or athletic groups, or [...] Answer Date Recorded PHQ-2 Score 2 03/12/2019 [facility] of Occupat ional Health - Occupational Stress [...] place to sleep or slept in a [place] [facility] (including now)? No 02/23/2022 Nutrition Answer Date [...] Sex Assigned at Female 02/23/2022 10:41 AM COMMERCIAL SERVICE TECHNICIAN Gender Identity Female 02/23/2022 10:41 AM COMMERCIAL SERVICE TECHNICIAN Sexual Orientation Straight 02/23/2022 10 :41 AM COMMERCIAL SERVICE TECHNICIAN documented as of this encounter Medications at [...] (Latest Contact Info) Description 05/07/2023 10:30 AM COMMERCIAL SERVICE TECHNICIAN Ancillary Procedure Department of Ophthalmology in [place], [place] [address] [place] [address] Pilar Ghosh M.D. [address] [place] [phone] 05/07/2023 11:00 AM COMMERCIAL SERVICE TECHNICIAN Comprehensive Visit Department of Ophthalmology in [place], [place] [address] [place] [phone] Pilar Ghosh M.D. [address] [place] [phone] 05/09/2023 8:00 AM COMMERCIAL SERVICE TECHNICIAN Procedure visit Department of Dermatology in [place], [place] [address] [place] [phone] Mitchel Recinos M.D., M.S. [address] [place] [phone] 05/09/2023 1:10 PM COMMERCIAL SERVICE TECHNICIAN Hospital Encounter [facility] [place] [address] [place] [phone] Pilar Ghosh M.D. [address] [place] [phone] 05/21/2023 10:30 AM COMMERCIAL SERVICE TECHNICIAN Ancillary Procedure Department of Ophthalmology in [place], [place] [address] [place] [phone] Pilar Ghosh M.D. [address] [place] [phone] 05/21/2023 11:00 AM COMMERCIAL SERVICE TECHNICIAN Office Visit Department of Ophthalmology in [place], [place] [address] [place] [phone] Pilar Ghosh M.D. 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 05/09/2023 1:10 PM COMMERCIAL SERVICE TECHNICIAN documented as of this encounter Procedures Procedure Name Priority Date/Time Associated Diagnosis Comments BI BREAST SCREENING BILATERAL WITH TOMOSYNTHESIS RAD - Routine (most inpatients and all outpatients) 03/27/2023 2:42 PM COMMERCIAL SERVICE TECHNICIAN Screening Mammogram Breast Cancer documented in this encounter Results * BI Breast Screening Bilateral with Tomosynthesis (03/27/2023 2:42 PM COMMERCIAL SERVICE TECHNICIAN) Anatomical Region Laterality Modality Breast, Breast Imaging RST L OS, Breast Imaging ARZ LOS, Breast Imaging FLA LOS Bilateral Mammography Impressions 03/28/2023 9:18 AM COMMERCIAL SERVICE TECHNICIAN Negative. RECOMMENDATION: ??Annual Screening Mammogram ASSESSMENT: ??BI-RADS: 1: Negative. Narrative 03/28/2023 9:18 AM COMMERCIAL SERVICE TECHNICIAN EXAM: ??BI BREAST SCREENING BILATERAL WITH TOMOSYNTHESIS [...] Total Score: 3 03/12/20 19 10:56 AM COMMERCIAL SERVICE TECHNICIAN documented as of this encounter
--- OUTSIDE RECORDS SUMMARY | 2023-04-19 07:51 | XMS_ITS | Encounter Summary ---
Author Name Unknown Organization [facility] Address [address] [place] [id number] Care Team Providers Care Parer Name Role Phone Unavailable Primary Care Provider Unavailabl e Reason for Referral * Outpatient (Routine) - Authorized Specialty Diagnoses / Procedures Referred By Joann saldana Referred To Contact Dermatology Diagnoses Cancer Skin Squamous Cell Personal History Owen Vernon M.D. [address] [place] [address] [facility] Referral ID Status Reason Start Date Expiration Date V isits Requested Visits Authorized [id number] Authorized 04/10/2023 04/09/2026 1 1 Scheduling Instructions FBSE IUM NOTE INTEREST CALCULATOR CLERK Reason for Visit * Outpatient (Routine) - Closed Specialty Diagnoses / Procedures Referred By Joann saldana Referred To Contact Dermatology Diagnoses Jahaira Pickering M.D. [address] [place] [phone] [facility] Referral ID Status Reason Start Date Expiration Date Visits Re quested Visits Authorized [id number] Closed 04/03/2023 04/02/2024 1 1 Encounter Details Date Type Department Care Team (Latest Contact Info) Description 04/10/2023 10:20 AM PREMIUM NOTE INTEREST CALCULATOR CLERK Comprehensive Visit Department of Dermatology in [place], [place] [address] [place] [phone] Rossi Duran M.D. [address] [place] [address] Intertrigo (Primary Dx); Dermatitis; Dermatitis Seborrheic; Keratosis Actinic; Cancer Skin Squamous Cell Personal History Social History Tobacco Use Types Packs/Day Years Used Date Smoking Tobacco: Never Smokeless Tobacco: Never Alcohol Use Standard Drinks/Week Comments Yes 1 (1 standard drink = 0.6 oz pur e alcohol) Approx once per month [facility] Utilities Answer Date Recorded In the past 12 months has e electric, gas, oil, or water company threatened to shut off services in your [...] often do you attend chur ch or baptist services? 1 to 4 times per year [...] [facility] - Occupational [...] your living situation today? I have a [facility] place to live 04/10/2023 Education Answer Date Recorded What is the highest level of school you have completed or the highest degree you have received? Professional school degree (e.g., MD, NATHALY, DVM, NAYELI) 09/01/2018 Sex and Gender Information Value Date Recorded Sex Assigned at Female 02/23/2022 10:41 AM PREMIUM NOTE INTEREST CALCULATOR CLERK Gender Identity Female 02/23/2022 10:41 AM PREMIUM NOTE INTEREST CALCULATOR CLERK Sexual Orientation Straight 02/23/2022 10 :41 AM PREMIUM NOTE INTEREST CALCULATOR CLERK documented as of this encounter Consult Notes * Rossi Duran M.D. - 04/10/2023 10:20 AM CST REFERRAL: Jahaira John M.D. [address] [place] [phone] Correspondence to: Rossi Duran M.D. Supervised by: Dr. Owen Vernon Patient seen and discussed with supervising senior solutions consultant, who evaluated the patient and concurs with the assessment and plan. SUBJECTIVE CHIEF COMPLAINT / PURPOSE OF VISIT Itchy rash involving right breast HISTORY OF PRESENT ILLNESS Ms. Cathryn Lopez is a 42 y.o. female who presents for evaluation of itchy rash involvingthe right breast. She has not been evaluated by our department in the past. Today, the patient states that she was recurrent itchy rash involving the right lower outer quadrant of the breast in the right inframammary chest. Prior treatments have included topical tacrolimus, triamcinolone, and clobetasol has been somewhat helpful for lesion on the right breast but not so helpful for lesion involving the right inframammary chest. She also reports having recurrent rash involving the face and focal areas of the scalp and postauricular folds for which she would like to discuss management strategies. She does report history of squamous cell carcinoma for which she has upcoming Mohs surgery plan. OBJECTIVE PHYSICAL EXAM General: Well appearing female in no acute distress and with appropriate affect. Skin: Focused skin examination of the scalp, face, neck, and chest was performed per patient request. [place] type 2 skin with well-circumscribed pink plaque involving the right inframammary chest. Grouped hyperpigmented papules without significant overlying scale involving the right lower outer quadrant of the breast. Ill-defined erythematous patches with overlying telangiectasias and few scattered papules involving the bilateral cheeks and nose. [place] gritty macule involving the right nasal dorsum and overlying the right eyebrow. [place] scaly plaques and papules involving the frontal hairline and postauricular folds. ASSESSMENT / PLAN #1 Intertrigo History and physical exam regarding rash involving the right inframammary chest are consistent withintertrigo. We reviewed the etiology, pathogenesis, natural course of this condition. At this time recommend topical treatment with 2% ketoconazole shampoo as a body wash b.i.d. when the rash is present. She was aware that exacerbating factors include occlusion, friction, heat, and sweating which she should minimize as feasible. #2 Dermatitis History and physical exam regarding rash involving the right lower quadrant of the breasts are consistent with dermatitis. We reviewed the etiology, pathogenesis, natural course of this condition. Ofnote she underwent mammogram earlier this month without any abnormal findings. Exam today is mostlynotable for postinflammatory changes. When the rash does recur we recommend topical treatment with previously prescribed tacrolimus 0.1% ointment b.i.d. and reserving triamcinolone 0.1% cream for severe flares. We typically avoid high potency strength topical steroids such as clobetasol 0.05% creamto thin sensitive skin areas such as the breasts. Patient was in agreement with this plan. #3 Actinic keratoses History and physical exam are also notable for actinic keratoses involving the face. Given premalignant potential treatment is indicated. We risks and benefits of liquid nitrogen cryotherapy versus topical field therapy and patient elected proceed with the latter. Prescription was provided for Efudex 5%-calcipotriene 0.005% which we recommend applying to the entire face b.i.d. for 5 days. We reviewed and provided literature regarding the anticipated inflammatory reaction. She was aware that this topical treatment will likely trigger rosacea flare as well. #4 Seborrheic dermatitis History and physical exam are consistent with seborrheic dermatitis involving the scalp and postauricular folds of possible involvement of the eyebrows as well. We reviewed the etiology, pathogenesis, natural course of this inflammatory condition which we anticipate will continue to wax and wane inthe future. Recommend treatment with 2% ketoconazole shampoo to affected areas once or twice daily when present. Patient was in agreement with this plan. #5 Rosacea History and physical exam are consistent with the rosacea with erythro telangiectatic and papulopustular variant. We reviewed the etiology, pathogenesis, natural course of this condition which we know is exacerbated by heat, stress, sweating, UV exposure, alcohol consumption, and smoking. Unfortunately topical treatments do not significantly improve erythro telangiectatic component or prevent flares. Patient was not particularly bothered by the papulopustular component therefore not recommending treatments for that at this time. #6 History of squamous cell carcinoma #7 Dermatoheliosis Patient reports history of squamous cell carcinoma and previously followed with local dermatologistwho has since retired. She would like to establish care with [facility] Dermatology and recommend that she return for full body skin exam this summer after she was completed her Mohs surgery for report of recent biopsy demonstrating SCC involving the eyelid. PATIENT EDUCATION Ready to learn. No apparent learning barriers were identified. Learning preferences include listening. Explained diagnosis and treatment plan; patient/guardian of patient expressed understanding of the content. IUM NOTE INTEREST CALCULATOR CLERK Associated attestation - Owen Vernon M.D. - 04/10/2023 10:52 AM PREMIUM NOTE INTEREST CALCULATOR CLERK I saw and evaluated the patient, participating in the morales portions of the service. I reviewed the resident/fellow???s note. I agree with the resident/fellow???s findings and plan. documented in this encounter Plan of Treatment Upcoming Encounters Date Type Department Care Team (Latest Contact Info) Description 05/07/2023 10:30 AM PREMIUM NOTE INTEREST CALCULATOR CLERK Ancillary Procedure Department of Ophthalmology in [place], [place] [address] [place] [phone] Pilar Ghosh M.D. [address] [place] [phone] 05/07/2023 11:00 AM PREMIUM NOTE INTEREST CALCULATOR CLERK Comprehensive Visit Department of Ophthalmology in [place], [place] [address] [place] [address] Pilar Ghosh M.D. [address] [place] [phone] 05/09/2023 8:00 AM PREMIUM NOTE INTEREST CALCULATOR CLERK Procedure visit Department of Dermatology in [place], [place] [address] [place] [phone] Mitchel Recinos M.D., M.S. [address] [place] [phone] 05/09/2023 1:10 PM PREMIUM NOTE INTEREST CALCULATOR CLERK Hospital Encounter [facility] [address] [place] [phone] Pilar Ghosh M.D. [address] [place] [phone] 05/21/2023 10:30 AM PREMIUM NOTE INTEREST CALCULATOR CLERK Ancillary Procedure Department of Ophthalmology in [place], [place] [address] [place] [phone] Pilar Ghosh M.D. [address] [place] [phone] 05/21/2023 11:00 AM PREMIUM NOTE INTEREST CALCULATOR CLERK Office Visit Department of Ophthalmology in [place], [place] [address] [place] [phone] Pilar Ghosh M.D. [address] [place] [phone] Scheduled Procedures Name Priority Associated Diagnoses Date/Ti me RECONSTRUCTION MOHS DEFECT Squamous Cell Carcinoma Of Skin Of Left Lower Eyelid Including [place] 05/09/2023 1:10 PM PREMIUM NOTE INTEREST CALCULATOR CLERK Scheduled Referrals Name Type Priority Associated Diagnoses Order Schedule Dermatology office visit (clinic) Outpatient Referral Routine Cancer Skin Squamous Cell Personal History Expected: 07/24/2023 (Approximate), Expires: 07/09/2024 documented as of this encounter Visit Diagnoses Diagnosis Intertrigo- Primary Dermatitis Dermatitis Seborrheic Keratosis Actinic Cancer Skin Squamous Cell Personal History documented in this encounter Additional Health Concerns Assessment Noted Time PHQ-9 Depression Total Score: 3 03/12/20 19 10:56 AM PREMIUM NOTE INTEREST CALCULATOR CLERK documented as of this encounter
--- OUTSIDE RECORDS SUMMARY | 2023-04-19 07:51 | XMS_ITS | Encounter Summary ---
Author Name Unknown Organization [facility] Address [address] [place] [address] Care Team Providers Care Apprentice Painter Brush Name Role Phone Unavailable Primary Care Provider [...] any clubs o r organizations such as episcopalian groups, unions, fraternal or athletic groups, or [...] Answer Date Recorded PHQ-2 Score 2 03/12/2019 [facility] - Occupational Stress Questionnaire Answer Date Recorded [...] place to sleep or slept in a long-term (including now)? No 02/23/2022 Nutrition Answer Date [...] Assigned at Female 02/23/2022 10:41 AM FIELD AUTOMOBILE ADJUSTER Gender Identity Female 02/23/2022 10:41 AM FIELD AUTOMOBILE ADJUSTER Sexual Orientation Straight 02/23/2022 10 :41 AM FIELD AUTOMOBILE ADJUSTER documented as of this encounter Plan of Treatment Upcoming Encounters Date Type Department Care Team (Latest Contact Info) Description 05/07/2023 10:30 AM FIELD AUTOMOBILE ADJUSTER Ancillary Procedure Department of Ophthalmology in [place], [place] [address] [place] [phone] Pilar Ghosh M.D. [address] [place] [phone] 05/07/2023 11:00 AM FIELD AUTOMOBILE ADJUSTER Comprehensive Visit Department of Ophthalmology in [place], [place] [address] [place] [phone] Pilar Ghosh M.D. [address] [place] [phone] 05/09/2023 8:00 AM FIELD AUTOMOBILE ADJUSTER Procedure visit Department of Dermatology in [place], [place] [address] [place] [phone] Mitchel Recinos M.D., M.S. [address] [place] [phone] 05/09/2023 1:10 PM FIELD AUTOMOBILE ADJUSTER Hospital Encounter [facility] [address] [place] [phone] Pilar Ghosh M.D. [address] [place] [phone] 05/21/2023 10:30 AM FIELD AUTOMOBILE ADJUSTER Ancillary Procedure Department of Ophthalmology in [place], [place] [address] [place] [phone] Pilar Ghosh M.D. [address] [place] [phone] 05/21/2023 11:00 AM FIELD AUTOMOBILE ADJUSTER Office Visit Department of Ophthalmology in [place], [place] [address] [place] [phone] Pilar Ghosh M.D. [address] [place] [phone] Scheduled Procedures Name Priority Associated Diagnoses Date/Ti me RECONSTRUCTION MOHS DEFECT Squamous Cell Carcinoma Of Skin Of Left Lower Eyelid Including [place] 05/09/2023 1:10 PM FIELD AUTOMOBILE ADJUSTER documented as of this encounter Procedures Procedure Name Priority Date/Time Associated Diagnosis Comments OPHTHALMOLOGY IMAGE EXAM Routine 02/13/2023 12:00 AM FIELD AUTOMOBILE ADJUSTER documented in this encounter Results * Eyes Outside Images-Ophthalmology Image Exam (02/13/2023 12:00 AM FIELD AUTOMOBILE ADJUSTER) Narrative [facility]S - 02/13/2023 8:25 AM FIELD AUTOMOBILE ADJUSTER This order has been created and auto-finalized [...] Score: 3 03/12/20 19 10:56 AM FIELD AUTOMOBILE ADJUSTER documented as of this encounter
--- OUTSIDE RECORDS SUMMARY | 2023-04-19 07:51 | XMS_ITS | Encounter Summary ---
Author Name Unknown Organization [facility] Address [address] [place] [address] Care Team Providers Care Boarding Kennel Or Cattery Operator Name Role Phone Unavailable Primary Care Provider Unavailabl e Reason for Referral * Outpatient (Routine) - Authorized Specialty Diagnoses / Procedures Referred By Joann saldana Referred To Contact Breast Clinic Jahaira John M.D. [address] [facility] [place] [address] [facility] Referral ID Status Reason Start Date Expiration Date V isits Requested Visits Authorized [id number] Authorized 07/20/2022 07/19/2025 1 1 * Outpatient (Routine) - Authorized Specialty Diagnoses / Procedures Referred By Joann saldana Referred To Contact Diagnoses Dense Breasts, Unspecified Procedures NM Molecular Breast Imaging Jahaira John M.D. [address] [place] [address] [facility] Referral ID Status Reason Start Date Expiration Date V isits Requested Visits Authorized [id number] Authorized 07/20/2022 07/20/2023 6 6 * Outpatient (Routine) - Closed Specialty Diagnoses / Procedures Referred By Joann saldana Referred To Contact Diagnoses Screening Mammogram Breast Cancer Procedures BI Breast Screening Bilateral with Tomosynthesis Jahaira John M.D. [address] [place] [address] [facility] Referral ID Status Reason Start Date Expiration Date Visits Re quested Visits Authorized [id number] Closed 07/20/2022 07/20/2023 1 1 Reason for Visit * Outpatient (Routine) - Closed Specialty Diagnoses / Procedures Referred By Joann saldana Referred To Contact Breast Clinic Jahaira John M.D. [address] [place] [phone] [facility] Referral ID Status Reason Start Date Expiration Date Visits Re quested Visits Authorized [id number] Closed 02/25/2022 02/24/2025 1 1 Encounter Details Date Type Department Care Team (Late st Contact Info) Description 07/20/2022 4:00 PM CDT Office Visit Breast Diagnostic Clinic in [place], [place] [address] [place] [phone] Jahaira John M.D. [address] [place] [address] Pain Breast (Primary Dx); Implant [...] How often do you attend chur or anabaptist services? 1 to 4 times per year 02/23/2022 Do you belong to any clubs o r organizations such as druze groups, unions, fraternal or athletic groups, or [...] Answer Date Recorded PHQ-2 Score 2 03/12/2019 [facility] - Occupational [...] Sex Assigned at Female 02/23/2022 10:41 AM WASTE PICKER Gender Identity Female 02/23/2022 10:41 AM WASTE PICKER Sexual Orientation Straight 02/23/2022 10 :41 AM WASTE PICKER documented as of this encounter Last Filed Vital Signs Vital Sign Reading Time Taken Comments Blood Pressure - - Pulse - - Temperature - - Respiratory Rate - - Oxygen Saturation - - Inhaled Oxygen Concentration - - Weight 83.2 kg (183 lb 6.8 oz) 07/20/2022 3:51 P M CDT Height - - Body Mass Index 30.23 02/23/2022 12:47 PM WASTE PICKER documented in this encounter Progress Notes * [...] MBI, MBI-guided biopsy is not available at [facility] at this pointand therefore additional imaging would [...] for screening breast MRI according to the [place] Cancer Guidelines. Whole breast ultrasound is not recommended at [facility] for breast cancer screening. She was provided with patient education material: ???What You Should Know About Your Breast Density?? [id number]. Rash Nummular eczema vs tinea vs other We discussed short trial of topical corticosteroid She will notify me if this does not resolve and go to see her orchid superintendent regarding biopsy if persistent Final Recommendations: BREAST CLINIC FOLLOW-UP RECOMMENDATIONS: Bilateral screening mammogram next due in 02/2023. MBI to be done 08/2023 and every other year while density remains C or D Clinical breast exam can be done on her return to [place] 08/2023 Breast self-awareness encouraged and the patient is advised to seek medical attention for any breast related concerns. PATIENT EDUCATION Ready to learn, no apparent learning barriers were identified; explained diagnosis and treatment plan; patient expressed understanding of the content. documented in this encounter Plan of Treatment Upcoming Encounters Date Type Department Care Team (Latest Contact Info) Description 05/07/2023 10:30 AM WASTE PICKER Ancillary Procedure Department of Ophthalmology in [place], [place] [address] [place] [address] Pilar Ghosh M.D. [address] [place] [address] 05/07/2023 11:00 AM WASTE PICKER Comprehensive Visit Department of Ophthalmology in [place], [place] [address] [place] [address] Pilar Ghosh M.D. [address] [place] [phone] 05/09/2023 8:00 AM WASTE PICKER Procedure visit Department of Dermatology in [place], [place] [address] [place] [phone] Mitchel Recinos M.D., M.S. [address] [place] [phone] 05/09/2023 1:10 PM WASTE PICKER Hospital Encounter [facility] [address] [place] [phone] Pilar Ghosh M.D. [address] [place] [phone] 05/21/2023 10:30 AM WASTE PICKER Ancillary Procedure Department of Ophthalmology in [place], [place] [address] [place] [phone] Pilar Ghosh M.D. [address] [place] [phone] 05/21/2023 11:00 AM WASTE PICKER Office Visit Department of Ophthalmology in [place], [place] [address] [place] [phone] Pilar Ghosh M.D. [address] [place] [phone] Scheduled Orders Name Type Priority Associated Diagnoses Orde r Schedule NM Molecular Breast Imaging Imaging RAD - Routine (most inpatients and all outpatients) Density Breast Expected: 09/06/2023 (Approximate), Expires: 12/21/2023 Scheduled Procedures Name Priority Associated Diagnoses Date/Ti me RECONSTRUCTION MOHS DEFECT Squamous Cell Carcinoma Of Skin Of Left Lower Eyelid Including [place] 05/09/2023 1:10 PM WASTE PICKER Scheduled Referrals Name Type Priority Associated Diagnoses Orde r Schedule Breast Clinic office visit (clinic) Outpatient Referral Routine Expected: 09/06/2023 (Approximate), Expires: 12/21/2023 documented as of this encounter Results * BI Breast Screening Bilateral with Tomosynthesis (03/27/2023 2:42 PM WASTE PICKER) Anatomical Region Laterality Modality Breast, Breast Imaging RST L OS, Breast Imaging ARZ LOS, Breast Imaging FLA LOS Bilateral Mammography Impressions 03/28/2023 9:18 AM WASTE PICKER Negative. RECOMMENDATION: ??Annual Screening Mammogram ASSESSMENT: ??BI-RADS: 1: Negative. Narrative 03/28/2023 9:18 AM WASTE PICKER EXAM: ??BI BREAST SCREENING BILATERAL WITH TOMOSYNTHESIS [...] Negative. Jahaira John M.D. IMG BI PROCEDURES documented in this encounter Visit Diagnoses Diagnosis Pain Breast- Primary Implant Breast Status Post Dense Breasts, Unspecified Rash Screening Mammogram Breast Cancer Screening Mammogram Breast Cancer documented in this encounter Additional Health Concerns Assessment Noted Time PHQ-9 Depression Total Score: 3 03/12/20 19 10:56 AM WASTE PICKER documented as of this encounter
--- OUTSIDE RECORDS SUMMARY | 2023-04-19 07:51 | XMS_ITS | Encounter Summary ---
Author Name Unknown Organization [facility] Address [address] [place] [address] Care Team Providers Care Supervisor Hard Candy Name Role Phone Unavailable Primary Care Provider Unavailabl e Encounter Details Date Type Department Care Team (Late st Contact Info) Description 04/03/2023 Clinical Communication Breast [facility] in [place], [place] [address] [place] [address] Jahaira John M.D. [address] [place] [phone] Social History Tobacco Use Types Packs/Day [...] often do you attend chur ch or anglican services? 1 to 4 times per year 02/23/2022 Do you belong to any clubs o r organizations such as judaism groups, unions, fraternal or athletic groups, or [...] Answer Date Recorded PHQ-2 Score 2 03/12/[address] [facility] - Occupational Stress Questionnaire Answer Date [...] place to sleep or slept in a usp (including now)? No 02/23/2022 Nutrition Answer Date [...] Sex Assigned at Female 02/23/2022 10:41 AM RUBBER COMPOUNDER SUPERVISOR Gender Identity Female 02/23/2022 10:41 AM RUBBER COMPOUNDER SUPERVISOR Sexual Orientation Straight 02/23/2022 10 :41 AM RUBBER COMPOUNDER SUPERVISOR documented as of this encounter Miscellaneous Notes * Telephone Encounter - Coby Garcia - 04/03/2023 11:19 AM CST NikkynieshaCathryn is wondering if you could place a referral to Dermatology for her? She said the rash on her breast has not gotten better since you saw her last year. Coby Diaz ER COMPOUNDER SUPERVISOR documented in this encounter Plan of Treatment Upcoming Encounters Date Type Department Care Team (Latest Contact Info) Description 05/07/2023 10:30 AM RUBBER COMPOUNDER SUPERVISOR Ancillary Procedure Department of Ophthalmology in [place], [place] [address] [place] [phone] Pilar Ghosh M.D. [address] [place] [phone] 05/07/2023 11:00 AM RUBBER COMPOUNDER SUPERVISOR Comprehensive Visit Department of Ophthalmology in [place], [place] [address] [place] [phone] Pilar Ghosh M.D. [address] [place] [phone] 05/09/2023 8:00 AM RUBBER COMPOUNDER SUPERVISOR Procedure visit Department of Dermatology in [place], [place] [address] [place] [phone] Mitchel Recinos M.D., M.S. [address] [place] [phone] 05/09/2023 1:10 PM RUBBER COMPOUNDER SUPERVISOR Hospital [place] [facility] [place] [address] [place] [phone] Pilar Ghosh M.D. [address] [place] [phone] 05/21/2023 10:30 AM RUBBER COMPOUNDER SUPERVISOR Ancillary Procedure Department of Ophthalmology in [place], [place] [address] [place] [phone] Pilar Ghosh M.D. [address] [place] [phone] 05/21/2023 11:00 AM RUBBER COMPOUNDER SUPERVISOR Office Visit Department of Ophthalmology in [place], [place] [address] [place] [phone] Pilar Ghosh M.D. [address] [place] [phone] Scheduled Procedures Name Priority Associated Diagnoses Date/Ti me RECONSTRUCTION MOHS DEFECT Squamous Cell Carcinoma Of Skin Of Left Lower Eyelid Including Canthus 05/09/2023 1:10 PM RUBBER COMPOUNDER SUPERVISOR documented as of this encounter Visit Diagnoses Not on filedocumented in this encounter Additional Health Concerns Assessment Noted Time PHQ-9 Depression Total Score: 3 03/12/20 19 10:56 AM RUBBER COMPOUNDER SUPERVISOR documented as of this encounter
--- OUTSIDE RECORDS SUMMARY | 2023-04-19 07:51 | XMS_ITS | Encounter Summary ---
Author Name Unknown Organization [facility] Address [address] [place] [address] Care Team Providers Care Metal Roofing Mechanic Name Role Phone Unavailable Primary Care Provider Unavailabl e Reason for Visit * Reason Onset Date Comments MOHS to schedule 03/04/2023 Encounter Details Date Type Department Care Team (Latest Contact Info) Description 03/04/2023 Clinical Communication Department of Ophthalmology in [place], [place] [address] [place] [address] Pilar Ghosh M.D. [address] [place] [phone] MOHS to schedule Social History Tobacco Use [...] How often do you attend chur or amish services? 1 to 4 times per year 02/23/2022 Do you belong to any clubs o r organizations such as yarsanism groups, unions, fraternal or athletic groups, or [...] Answer Date Recorded PHQ-2 Score 2 03/12/2019 [facility] - Occupational Stress Questionnaire Answer Date [...] Sex Assigned at Female 02/23/2022 10:41 AM COAL LOADER Gender Identity Female 02/23/2022 10:41 AM COAL LOADER Sexual Orientation Straight 02/23/2022 10 :41 AM COAL LOADER documented as of this encounter Plan of Treatment Upcoming Encounters Date Type Department Care Team (Latest Contact Info) Description 05/07/2023 10:30 AM COAL LOADER Ancillary Procedure Department of Ophthalmology in [place], [place] 200 [place] [address] Pilar Ghosh M.D. 200 [place] [address] 05/07/2023 11:00 AM COAL LOADER Comprehensive Visit Department of Ophthalmology in [place], [place] [address] [place] [phone] Pilar Ghosh M.D. [address] [place] [phone] 05/09/2023 8:00 AM COAL LOADER Procedure visit Department of Dermatology in [place], [place] [address] [place] [phone] Mitchel Recinos M.D., M.S. [address] [place] [phone] 05/09/2023 1:10 PM COAL LOADER Hospital [facility] [place] [address] [place] [phone] Pilar Ghosh M.D. [address] [place] [phone] 05/21/2023 10:30 AM COAL LOADER Ancillary Procedure Department of Ophthalmology in [address] [phone] Pilar Ghosh M.D. [address] [place] [phone] 05/21/2023 11:00 AM COAL LOADER Office Visit Department of Ophthalmology in [address] [phone] Pilar Ghosh M.D. 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
--- OUTSIDE RECORDS SUMMARY | 2023-04-19 07:51 | XMS_ITS | Encounter Summary ---
Author Name Unknown Organization [facility] Address [address] [place] [address] Care Team Providers Care Hypercil Core Transformer Assembler Name Role Phone Unavailable Primary Care Provider Unavailabl e Reason for Visit * Reason Onset Date Comments Pre-visit Intake 07/16/2022 * Appointment Request (Routine) - Closed Specialty Diagnoses / Procedures Referred By Joann saldana Referred To Contact Breast Clinic Referral ID Status Reason Start Date Expiration Date Visits Re quested Visits Authorized [id number] Closed 04/06/2022 04/06/2023 1 1 Encounter Details Date Type Department Care Team (Latest Contact Info) Description 07/16/2022 10:30 AM CDT Clinical Communication Virtual Review in [place], [place] 200 [place] [address] Pre-visit Intake Social History Tobacco Use Types [...] How often do you attend chur or rastafari services? 1 to 4 times per year 02/23/2022 Do you belong to any clubs o r organizations such as synagogue groups, unions, fraternal or athletic groups, or [...] Answer Date Recorded PHQ-2 Score 2 03/12/2019 [facility] - Occupational [...] Sex Assigned at Female 02/23/2022 10:41 AM SECURITY ORDERLY Gender Identity Female 02/23/2022 10:41 AM SECURITY ORDERLY Sexual Orientation Straight 02/23/2022 10 :41 AM SECURITY ORDERLY documented as of this encounter Plan of Treatment Upcoming Encounters Date Type Department Care Team (Latest Contact Info) Description 05/07/2023 10:30 AM SECURITY ORDERLY Ancillary Procedure Department of Ophthalmology in [place], [place] [address] [place] [address] Pilar Ghosh M.D. [address] [place] [phone] 05/07/2023 11:00 AM SECURITY ORDERLY Comprehensive Visit Department of Ophthalmology in [place], [place] [address] [place] [phone] Pilar Ghosh M.D. [address] [place] [phone] 05/09/2023 8:00 AM SECURITY ORDERLY Procedure visit Department of Dermatology in [place], [place] [address] [place] [phone] Mitchel Recinos M.D., M.S. [address] [place] [phone] 05/09/2023 1:10 PM SECURITY ORDERLY Hospital [facility] [place] [address] [place] [phone] Pilar Ghosh M.D. [address] [place] [phone] 05/21/2023 10:30 AM SECURITY ORDERLY Ancillary Procedure Department of Ophthalmology in [place], [place] [address] [place] [phone] Pilar Ghosh M.D. [address] [place] [phone] 05/21/2023 11:00 AM SECURITY ORDERLY Office Visit Department of Ophthalmology in [place], [place] [address] [place] [phone] Pilar Ghosh M.D. 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
--- OUTSIDE RECORDS SUMMARY | 2023-04-19 07:51 | XMS_ITS ---
Author Name Unknown Organization [facility] Address [address] [place] [address] Care Team Providers Care Correctional Officer Captain Name Role Phone Unavailable Unavailable Unavailable Surgery Details Not on file Complications Check Surgery Details section. Procedure Estimated Blood Loss Check Surgery Details section. Procedure Findings Check Surgery Details section. Procedure Specimens Taken Check Surgery Details section.
--- OUTSIDE RECORDS SUMMARY | 2023-04-19 07:51 | XMS_ITS | Encounter Summary ---
Author Name Unknown Organization [facility] Address [address] [place] [address] Care Team Providers Care Childrens Club Attendant Name Role Phone Unavailable Primary Care Provider Unavailabl e Reason for Referral * Outpatient (Routine) - Authorized Specialty Diagnoses / Procedures Referred By Contac t Referred To Contact Dermatology Diagnoses Lesion Eyelid Procedures CORNELIA MOHS 1-4 sites Pilar Ghosh M.D. 200 [place] [phone] [facility] Referral ID Status Reason Start Date Expiration Date V isits Requested Visits Authorized [id number] Authorized 02/13/2023 02/13/2024 1 1 DE SALES ASSOCIATE * Outpatient (Routine) - Authorized Specialty Diagnoses / Procedures Referred By Joann saldana Referred To Contact Ophthalmology Diagnoses Lesion Eyelid Pilar Ghosh M.D. 200 [place] [address] [facility] Referral ID Status Reason Start Date Expiration Date V isits Requested Visits Authorized [id number] Authorized 02/13/2023 02/13/2024 1 1 DE SALES ASSOCIATE Encounter Details Date Type Department Care Team (Latest Contact Info) Description 02/13/2023 Clinical Communication Department of Ophthalmology in [place], [place] [address] [place] [phone] Pilar Ghosh M.D. 200 [place] [address] Social History Tobacco Use Types Packs/Day Years [...] week 02/23/2022 How often do you attend [facility] or mandaen services? 1 to 4 times per year 02/23/2022 Do you belong to any clubs o r organizations such as moravian groups, unions, fraternal or athletic groups, or [...] Answer Date Recorded PHQ-2 Score 2 03/12/2019 [facility] - Occupational Stress Questionnaire Answer [...] Sex Assigned at Female 02/23/2022 10:41 AM INSIDE SALES ASSOCIATE Gender Identity Female 02/23/2022 10:41 AM INSIDE SALES ASSOCIATE Sexual Orientation Straight 02/23/2022 10 :41 AM INSIDE SALES ASSOCIATE documented as of this encounter Miscellaneous Notes * Addendum Note - Ginger Bloom, C.O.A. - 02/13/2023 12:33 PM CSTAddended by: GINGER BLOOM on: 02/13/2023 12:33 PM Modules accepted: Orders DE SALES ASSOCIATE documented in this encounter Plan of Treatment Upcoming Encounters Date Type Department Care Team (Latest Contact Info) Description 05/07/2023 10:30 AM INSIDE SALES ASSOCIATE Ancillary Procedure Department of Ophthalmology in [place], [place] [address] [place] [phone] Pilar Ghosh M.D. [address] [place] [phone] 05/07/2023 11:00 AM INSIDE SALES ASSOCIATE Comprehensive Visit Department of Ophthalmology in [place], [place] [address] [place] [phone] Pilar Ghosh M.D. [address] [place] [phone] 05/09/2023 8:00 AM INSIDE SALES ASSOCIATE Procedure visit Department of Dermatology in [place], [place] [address] [place] [phone] Mitchel Recinos M.D., M.S. [address] [place] [phone] 05/09/2023 1:10 PM INSIDE SALES ASSOCIATE Hospital [place] [facility] [place] [address] [place] [phone] Pilar Ghosh M.D. [address] [place] [phone] 05/21/2023 10:30 AM INSIDE SALES ASSOCIATE Ancillary Procedure Department of Ophthalmology in [place], [place] [address] [place] [phone] Pilar Ghosh M.D. [address] [place] [phone] 05/21/2023 11:00 AM INSIDE SALES ASSOCIATE Office Visit Department of Ophthalmology in [place], [place] [address] [place] [phone] Pilar Ghosh M.D. 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 I verify that I have examined all relevant slides/materi als for the specimen(s) and rendered or confirmed the diagnosis. 02/26/2023 3:56 PM INSIDE SALES ASSOCIATE DTL Material Received A. [id number]: Left eyelid ? 1 stained slide 02/26/2023 3:56 PM INSIDE SALES ASSOCIATE DTL Interpretation FINAL DIAGNOSIS Skin, left eyelid, biopsy ([id number]; 01/31/2023): Squamous cell carcinoma, well differentiate d, present at the inked biopsy margin. 02/26/2023 3:56 PM INSIDE SALES ASSOCIATE DTL Varies 01/31/2023 9:20 AM INSIDE SALES ASSOCIATE 02/22/2023 9:54 AM INSIDE SALES ASSOCIATE Pilar Ghosh M.D. LAB SURG PATH [facility] [address] [place] [address], [facility] DTL [address] [place] [address] documented in this encounter Visit Diagnoses Diagnosis Lesion Eyelid- Primary documented in this encounter Additional Health Concerns Assessment Noted Time PHQ-9 Depression Total Score: 3 03/12/20 19 10:56 AM INSIDE SALES ASSOCIATE documented as of this encounter
--- OUTSIDE RECORDS SUMMARY | 2023-04-19 07:51 | XMS_ITS | Referral Summary ---
Author Name Unknown Organization [facility] Address [address] [place] [address] Care Team Providers Care Writing Tutor Name Role Phone Unavailable Primary Care Provider Unavailabl e Source Comments Patient records contain information from all sites at [facility]. For routine questions regarding patient records, call [phone] during business hours, M-F 8:00 AM - 5:00 PM Central Time. Record requests for emergency care only can be directed to [phone] at any time.[facility] Encounters Date Type Department Care Team Description 04/10/2023 10:20 AM SECURITY ALARM TECHNICIAN Comprehensive Visit Department of Dermatology in [place], [place] [address] [phone] Rossi Duran M.D. Intertrigo (Primary Dx); Dermatitis; Dermatitis Seborrheic; Keratosis Actinic; Cancer Skin Squamous Cell Personal History 04/03/2023 Orders Only Breast [facility] Clinic in [place], [place] [address] [phone] Jahaira John M.D. Rash (Primary Dx) 04/03/2023 Clinical Communication Breast Diagnostic Clinic in [place], [place] [address] [place] [phone] Jahaira John M.D. 03/27/2023 2:05 PM SECURITY ALARM TECHNICIAN - 03/27/2023 11:59 PM SECURITY ALARM TECHNICIAN Hospital Encounter Department of Radiology in [place], [place] [address] [place] [phone] Jahaira John M.D. Screening Mammogram Breast Cancer Discharge Disposition: Home or Self Care 03/05/2023 Orders Only Department of Ophthalmology in [place], [place] [address] [place] [phone] Pilar Ghosh M.D. 03/04/2023 Clinical Communication Department of Ophthalmology in [place], [place] [address] [place] [phone] Pilar Ghosh M.D. MOHS to schedule 02/15/2023 2:10 PM SECURITY ALARM TECHNICIAN Lab RST RO LMP [address] [place] [phone] Pilar Ghosh M.D. Lesion Eyelid 02/13/2023 Clinical Communication Department of Ophthalmology in [place], [place] [address] [place] [phone] Pilar Ghosh M.D. Referral for MOHS 02/13/2023 Clinical Communication Department of Ophthalmology in [place], [place] [address] [place] [phone] Pilar Ghosh M.D. 02/13/2023 Ancillary Procedure Department of Ophthalmology 02/12/2023 Clinical Communication Department of Ophthalmology in [address] [phone] Provider, Unknown Appt Request from Last 3 Months Allergies Active Allergy Reactions Criticality Noted Date Comments [place] Pollen Other (see comments) Medium 09/02/2018 Running [...] Overview: Added automatically from request for surgery [id number] Adenocarcinoma Cervix In Situ (Severe Dysplasia) 01/03/2020 Post Traumatic Stress Disorder Unspecified 08/26 Abnormal Pap Smear Cervix 08/15/2018 Overview: Added automatically from request for surgery [id number] Atypical Glandular Cells Uncertain Significance 08/15/2018 Overview: Added automatically from request for surgery [id number] Sinusitis Chronic 03/16/2016 Polyp Nasal 12/19/2015 Wheezing [...] pur e alcohol) Approx once per month [facility] [employer] Answer Date Recorded In the past 12 months has e [employer], gas, oil, or water [employer] threatened to shut off services in your [...] often do you attend chur ch or mormon services? 1 to 4 times per year 02/23/2022 Do you belong to any clubs o r organizations such as alevism groups, unions, fraternal or athletic groups, or [...] Date Recorded PHQ-2 Score 2 03/12/2019 [facility] - Occupational Stress Questionnaire Answer Date [...] your living situation today? I have a [facility] place to live 04/10/2023 Education Answer Date Recorded What is the highest level of school you have completed or the highest degree you have received? Professional school degree (e.g., MD, DDS, DVM, NAYELI) 09/01/2018 Sex and Gender Information Value Date Recorded Sex Assigned at Female 02/23/2022 10:41 AM SECURITY ALARM TECHNICIAN Gender Identity Female 02/23/2022 10:41 AM SECURITY ALARM TECHNICIAN Sexual Orientation Straight 02/23/2022 10 :41 AM SECURITY ALARM TECHNICIAN Last Filed Vital Signs Vital Sign Reading Time Taken Comments Blood Pressure 138/84 05/18/2022 7:58 PM SECURITY ALARM TECHNICIAN Pulse 88 05/18/2022 7:58 PM SECURITY ALARM TECHNICIAN Temperature 36.6 ??C (97.9 ??F) 04/06/2020 9:19 AM CS T Respiratory Rate 16 05/18/2022 7:58 PM SECURITY ALARM TECHNICIAN Oxygen Saturation 96% 05/18/2022 7:58 PM SECURITY ALARM TECHNICIAN Inhaled Oxygen Concentration - - Weight 83.2 kg (183 lb 6.8 oz) 07/20/2022 3:51 P M CDT Height 165.9 cm (5' 5.32) 02/23/2022 12:[address] Body Mass Index 30.23 02/23/2022 12:47 PM SECURITY ALARM TECHNICIAN Plan of Treatment Upcoming Encounters Date Type Department Care Team (Latest Contact Info) Description 05/07/2023 10:30 AM SECURITY ALARM TECHNICIAN Ancillary Procedure Department of Ophthalmology in [place], [place] [address] [place] [phone] Pilar Ghosh M.D. 200 [place] [phone] 05/07/2023 11:00 AM SECURITY ALARM TECHNICIAN Comprehensive Visit Department of Ophthalmology in [place], [place] [address] [place] [address] Pilar Ghosh M.D. [address] [place] [phone] 05/09/2023 8:00 AM SECURITY ALARM TECHNICIAN Procedure visit Department of Dermatology in [place], [place] [address] [place] [phone] Mitchel Recinos M.D., M.S. [address] [place] [phone] 05/09/2023 1:10 PM SECURITY ALARM TECHNICIAN Hospital Encounter [facility] [address] [place] [phone] Pilar Ghosh M.D. [address] [place] [phone] 05/21/2023 10:30 AM SECURITY ALARM TECHNICIAN Ancillary Procedure Department of Ophthalmology in [place], [place] [address] [place] [place] [phone] Pilar Ghosh M.D. [address] [place] [phone] 05/21/2023 11:00 AM SECURITY ALARM TECHNICIAN Office Visit Department of Ophthalmology in [place], [place] [address] [place] [phone] Pilar Ghosh M.D. 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 687 / / Description:Device Manufactu rer - [facility]. Body Location - Other. Right. Device Status Text - AUD [facility]-[id number]. Titanium Dornhoffer implant line PORP: MR Conditional 1.5T or 3T scanning. First level operating mode. Updated by Ruth Castillo, 03/08/22. Procedures Procedure Name Priority Date/Time Associated Diagnosis Comments BI BREAST SCREENING BILATERAL WITH TOMOSYNTHESIS RAD - Routine (most inpatients and all outpatients) 03/27/2023 2:42 PM SECURITY ALARM TECHNICIAN Screening Mammogram Breast Cancer OPHTHALMOLOGY IMAGE EXAM Routine 02/13/2023 12:00 AM SECURITY ALARM TECHNICIAN PATHOLOGY REVIEW OF OUTSIDE MATERIAL Routine 01/31/2023 9:20 AM SECURITY ALARM TECHNICIAN Lesion Eyelid from Last 3 Months Results * BI Breast Screening Bilateral with Tomosynthesis (03/27/2023 2:42 PM SECURITY ALARM TECHNICIAN) Anatomical Region Laterality Modality Breast, Breast Imaging RST L OS, Breast Imaging ARZ LOS, Breast Imaging FLA LOS Bilateral Mammography Impressions 03/28/2023 9:18 AM SECURITY ALARM TECHNICIAN Negative. RECOMMENDATION: ??Annual Screening Mammogram ASSESSMENT: ??BI-RADS: 1: Negative. Narrative 03/28/2023 9:18 AM SECURITY ALARM TECHNICIAN EXAM: ??BI BREAST SCREENING BILATERAL WITH [...] Outside Images-Ophthalmology Image Exam (02/13/2023 12:00 AM SECURITY ALARM TECHNICIAN) Narrative IIMS - 02/13/2023 8:25 AM SECURITY ALARM TECHNICIAN This order has been created and auto-finalized to support the import of images acquired without order. The clinical documentation to support these images can be found on the encounter that produced images. Provider Not In System IMG NON RAD IMAGI NG PROCEDURES IIRI NA * Pathology Review of Outside Material (01/31/2023 9:20 AM SECURITY ALARM TECHNICIAN) 02/26/2023 3:56 PM SECURITY ALARM TECHNICIAN DTL Report electronically signed by Dimitry Bunch M.D. I verify that I have examined all relevant slides/materi als for the specimen(s) and rendered or confirmed the diagnosis. 02/26/2023 3:56 PM SECURITY ALARM TECHNICIAN DTL Material Received A. [id number]: Left eyelid ? 1 stained slide 02/26/2023 3:56 PM SECURITY ALARM TECHNICIAN DTL Interpretation FINAL DIAGNOSIS Skin, left eyelid, biopsy ([id number]; 01/31/2023): Squamous cell carcinoma, well differentiate d, present at the inked biopsy margin. 02/26/2023 3:56 PM SECURITY ALARM TECHNICIAN DTL Varies 01/31/2023 9:20 AM SECURITY ALARM TECHNICIAN 02/22/2023 9:54 AM SECURITY ALARM TECHNICIAN Pilar Ghosh M.D. LAB SURG PATH ORDERA BLES [facility] [address] [place] [address], [facility] DTL [address] [place] [address] from Last 3 Months Advance Directives For more information, please contact: [phone] Documents on File Type Date Recorded Patient Health Therapist Expl anation Advance Directives 11/25/2018 9:04 AM [...] Agents on File Name Relationship Healthcare Agent [facility] p Communication J Luis Vazquez Health Care Agent Margaret Zarate [facility] re Agent
--- OUTSIDE RECORDS SUMMARY | 2023-04-19 07:51 | XMS_ITS | Encounter Summary ---
Author Name Unknown Organization [facility] Address [address] [place] [address] Care Team Providers Care Exercise Specialist Name Role Phone Unavailable Primary Care Provider Unavailabl e Reason for Visit * Reason Onset Date Comments Referral for MOHS 02/13/2023 Encounter Details Date Type Department Care Team (Latest Contact Info) Description 02/13/2023 Clinical Communication Department of Ophthalmology in [place], [place] [address] [place] [phone] Pilar Ghosh M.D. [address] [place] [phone] Referral for MOHS Social History Tobacco Use [...] How often do you attend chur or nondenominational services? 1 to 4 times per year [...] Answer Date Recorded PHQ-2 Score 2 03/12/2019 [facility] - Occupational Stress Questionnaire Answer Date [...] Sex Assigned at Female 02/23/2022 10:41 AM TELEGRAPH OPERATOR Gender Identity Female 02/23/2022 10:41 AM TELEGRAPH OPERATOR Sexual Orientation Straight 02/23/2022 10 :41 AM TELEGRAPH OPERATOR documented as of this encounter Miscellaneous Notes * Telephone Encounter - Kathryn Rubin - 02/13/2023 10:47 AM CST Fax sent the [facility] about interpretation of path slides that were requested from [facility] in [place]. GRAPH OPERATOR * Telephone Encounter - Homashana Kathryn J - 02/13/2023 10:19 AM CST Referral from Dr. Steffen Barker at [facility] in [place], [place]. Biopsy done at [facility] on 02/01/23 showed squamous cell carcinoma of left lower eyelid. Asked vehicle technician to do orders for patient to see oculoplastics and order for us to interpret outside path slides. GRAPH OPERATOR documented in this encounter Plan of Treatment Upcoming Encounters Date Type Department Care Team (Latest Contact Info) Description 05/07/2023 10:30 AM TELEGRAPH OPERATOR Ancillary Procedure Department of Ophthalmology in [place], [place] [address] [place] [phone] Pilar Ghosh M.D. [address] [place] [phone] 05/07/2023 11:00 AM TELEGRAPH OPERATOR Comprehensive Visit Department of Ophthalmology in [place], [place] [address] [place] [phone] Pilar Ghosh M.D. [address] [place] [phone] 05/09/2023 8:00 AM TELEGRAPH OPERATOR Procedure visit Department of Dermatology in [place], [place] [address] [place] [phone] Mitchel Recinos M.D., M.S. [address] [place] [phone] 05/09/2023 1:10 PM TELEGRAPH OPERATOR Hospital Encounter [facility] [address] [place] [phone] Pilar Ghosh M.D. [address] [place] [phone] 05/21/2023 10:30 AM TELEGRAPH OPERATOR Ancillary Procedure Department of Ophthalmology in [place], [place] [address] [place] [address] Pilar Ghosh M.D. [address] [place] [phone] 05/21/2023 11:00 AM TELEGRAPH OPERATOR Office Visit Department of Ophthalmology in [place], [place] [address] [place] [phone] Pilar Ghosh M.D. [address] [place] [phone] Scheduled Procedures Name Priority Associated Diagnoses Date/Ti me RECONSTRUCTION MOHS DEFECT Squamous Cell Carcinoma Of Skin Of Left Lower Eyelid Including [place]hus 05/09/2023 1:10 PM TELEGRAPH OPERATOR documented as of this encounter Visit Diagnoses Not on filedocumented in this encounter Additional Health Concerns Assessment Noted Time PHQ-9 Depression Total Score: 3 03/12/20 10:56 AM TELEGRAPH OPERATOR documented as of this encounter
--- OUTSIDE RECORDS SUMMARY | 2023-04-19 07:51 | XMS_ITS | Encounter Summary ---
Author Name Unknown Organization [facility] Address [address] [place] [address] Care Team Providers Care Teletypewriter Installer Name Role Phone Unavailable Primary Care Provider Unavailabl e Encounter Details Date Type Department Care Team (Late st Contact Info) Description 02/15/2023 2:10 PM UPHOLSTERY TRIMMER Lab RST RO LMP [address] [place] [phone] Pilar Ghosh M.D. [address] [place] [phone] Lesion Eyelid Social History Tobacco Use Types [...] often do you attend chur ch or lutheran services? 1 to 4 times per year 02/23/2022 Do you belong to any clubs o r organizations such as taoist groups, unions, fraternal or athletic groups, or [...] Date Recorded PHQ-2 Score 2 03/12/2019 [facility] Answer Date Recorded [...] Sex Assigned at Female 02/23/2022 10:41 AM UPHOLSTERY TRIMMER Gender Identity Female 02/23/2022 10:41 AM UPHOLSTERY TRIMMER Sexual Orientation Straight 02/23/2022 10 :41 AM UPHOLSTERY TRIMMER documented as of this encounter Plan of Treatment Upcoming Encounters Date Type Department Care Team (Latest Contact Info) Description 05/07/2023 10:30 AM UPHOLSTERY TRIMMER Ancillary Procedure Department of Ophthalmology in [place], [place] 200 [place] [phone] Pilar Ghosh M.D. 200 [place] [phone] 05/07/2023 11:00 AM UPHOLSTERY TRIMMER Comprehensive Visit Department of Ophthalmology in [place], [place] [address] [place] [phone] Pilar Ghosh M.D. [address] [place] [phone] 05/09/2023 8:00 AM UPHOLSTERY TRIMMER Procedure visit Department of Dermatology in [place], [place] [address] [place] [phone] Mitchel Recinos M.D., M.S. [address] [place] [phone] 05/09/2023 1:10 PM UPHOLSTERY TRIMMER Hospital Encounter [facility] [address] [place] [phone] Pilar Ghosh M.D. [address] [place] [phone] 05/21/2023 10:30 AM UPHOLSTERY TRIMMER Ancillary Procedure Department of Ophthalmology in [place], [place] [address] [place] [phone] Pilar Ghosh M.D. [address] [place] [phone] 05/21/2023 11:00 AM UPHOLSTERY TRIMMER Office Visit Department of Ophthalmology in [place], [place] [address] [place] [phone] Pilar Ghosh M.D. [address] [place] [phone] Scheduled Procedures Name Priority Associated Diagnoses Date/Ti me RECONSTRUCTION MOHS DEFECT Squamous Cell Carcinoma Of Skin Of Left Lower Eyelid Including [place]hus 05/09/2023 1:10 PM UPHOLSTERY TRIMMER documented as of this encounter Procedures Procedure Name Priority Date/Time Associated Diagnosis Comments PATHOLOGY REVIEW OF OUTSIDE MATERIAL Routine 01/31/2023 9:20 AM UPHOLSTERY TRIMMER Lesion Eyelid documented in this encounter Results * Pathology Review of Outside Material (01/31/2023 9:20 AM UPHOLSTERY TRIMMER) 02/26/2023 3:56 PM UPHOLSTERY TRIMMER DTL Report electronically signed by Dimitry Bunch M.D. I verify that I have examined all relevant slides/materi als for the specimen(s) and rendered or confirmed the diagnosis. 02/26/2023 3:56 PM UPHOLSTERY TRIMMER DTL Material Received A. [id number]: Left eyelid ? 1 stained slide 02/26/2023 3:56 PM UPHOLSTERY TRIMMER DTL Interpretation FINAL DIAGNOSIS Skin, left eyelid, biopsy ([id number]; 01/31/2023): Squamous cell carcinoma, well differentiate d, present at the inked biopsy margin. 02/26/2023 3:56 PM UPHOLSTERY TRIMMER DTL Varies 01/31/2023 9:20 AM UPHOLSTERY TRIMMER 02/22/2023 9:54 AM UPHOLSTERY TRIMMER Pilar Ghosh M.D. LAB SURG PATH ORDERA BLES [facility] [address] [place] [address], [facility] DT [address] [place] [address] documented in this encounter Visit Diagnoses Diagnosis Lesion Eyelid documented in this encounter Additional Health Concerns Assessment Noted Time PHQ-9 Depression Total Score: 3 03/12/20 19 10:56 AM UPHOLSTERY TRIMMER documented as of this encounter
--- OUTSIDE RECORDS SUMMARY | 2023-04-19 07:52 | XMS_ITS | Encounter Summary ---
Author Name Unknown Organization [facility] Address [address] [place] [address] Care Team Providers Care Buffet Attendant Name Role Phone Unavailable Primary Care Provider Unavailabl e Reason for Referral * MRI/CAT/PET Scan (Routine) - Closed Specialty Diagnoses / Procedures Referred By Joann saldana Referred To Contact Radiology Diagnoses Dense Breasts, Unspecified Symptoms Breast Implant Breast Status Post Procedures MR Breast Bilateral without and with IV Contrast Jahaira John M.D. [address] [place] [address] [facility] Referral ID Status Reason Start Date Expiration Date Visits Re quested Visits Authorized [id number] Closed 03/08/2022 03/08/2023 1 1 ER WASTE DISPOSAL LEAKAGE Reason for Visit * MRI/CAT/PET Scan (Routine) - Closed Specialty Diagnoses / Procedures Referred By Joann saldana Referred To Contact Radiology Diagnoses Dense Breasts, Unspecified Symptoms Breast Implant Breast Status Post Procedures MR Breast Bilateral without and with IV Contrast Jahaira John M.D. [address] [place] [address] [facility] Referral ID Status Reason Start Date Expiration Date Visits Re quested Visits Authorized [id number] Closed 03/08/2022 03/08/2023 1 1 Encounter Details Date Type Department Care Team (Latest Contact Info) Description 05/18/2022 6:08 PM TESTER WASTE DISPOSAL LEAKAGE - 05/18/2022 11:59 PM TESTER WASTE DISPOSAL LEAKAGE Hospital Encounter Department of Radiology, [facility], in [place], [place] [address] [place] [address] Jahaira John M.D. [address] [place] [address] [place] [address] Density Breast; Symptoms Breast; Implant [...] often do you attend chur ch or hoahaoism services? 1 to 4 times per year [...] Answer Date Recorded PHQ-2 Score 2 03/12/2019 [facility] [place] [facility] Occupat ional Health - Occupational Stress [...] place to sleep or slept in a fdc (including now)? No 02/23/2022 Nutrition Answer Date [...] Sex Assigned at Female 02/23/2022 10:41 AM TESTER WASTE DISPOSAL LEAKAGE Gender Identity Female 02/23/2022 10:41 AM TESTER WASTE DISPOSAL LEAKAGE Sexual Orientation Straight 02/23/2022 10 :41 AM TESTER WASTE DISPOSAL LEAKAGE documented as of this encounter Last Filed Vital Signs Vital Sign Reading Time Taken Comments Blood Pressure 138/84 05/18/2022 7:58 PM TESTER WASTE DISPOSAL LEAKAGE Pulse 88 05/18/2022 7:58 PM TESTER WASTE DISPOSAL LEAKAGE Temperature - - Respiratory Rate 16 05/18/2022 7:58 PM TESTER WASTE DISPOSAL LEAKAGE Oxygen Saturation 96% 05/18/2022 7:58 PM TESTER WASTE DISPOSAL LEAKAGE Inhaled Oxygen Concentration - - Weight - [...] present to evaluate. Taking juice and fluids ER WASTE DISPOSAL LEAKAGE * Sharron Thakkar M.S.N., R.N. - 05/18/2022 6:45 PM CST Pt reports resolving symptoms. Ambulating without dizziness. Mild headache but reports resolution of dizziness and nausea. Dr Avila approved discharge. Pt instructions to drink fluids and report to ED if return of symptoms. ER WASTE DISPOSAL LEAKAGE documented in this encounter Plan of Treatment Upcoming Encounters Date Type Department Care Team (Latest Contact Info) Description 05/07/2023 10:30 AM TESTER WASTE DISPOSAL LEAKAGE Ancillary Procedure Department of Ophthalmology in [place], [place] [address] [place] [address] Pilar Ghosh M.D. [address] [place] [address] 05/07/2023 11:00 AM TESTER WASTE DISPOSAL LEAKAGE Comprehensive Visit Department of Ophthalmology in [place], [place] [address] [place] [address] Pilar Ghosh M.D. [address] [place] [phone] 05/09/2023 8:00 AM TESTER WASTE DISPOSAL LEAKAGE Procedure visit Department of Dermatology in [place], [place] [address] [place] [address] Mitchel Recinos M.D., M.S. [address] [place] [phone] 05/09/2023 1:10 PM TESTER WASTE DISPOSAL LEAKAGE Hospital Encounter [facility] [address] [place] [phone] Pilar Ghosh M.D. [address] [place] [phone] 05/21/2023 10:30 AM TESTER WASTE DISPOSAL LEAKAGE Ancillary Procedure Department of Ophthalmology in [place], [place] [address] [place] [phone] Pilar Ghosh M.D. [address] [place] [phone] 05/21/2023 11:00 AM TESTER WASTE DISPOSAL LEAKAGE Office Visit Department of Ophthalmology in [place], [place] [address] [place] [phone] Pilar Ghosh M.D. [address] [place] [phone] Scheduled Procedures Name Priority Associated Diagnoses Date/Ti me RECONSTRUCTION MOHS DEFECT Squamous Cell Carcinoma Of Skin Of Left Lower Eyelid Including [place] 05/09/2023 1:10 PM TESTER WASTE DISPOSAL LEAKAGE documented as of this encounter Procedures Procedure Name Priority Date/Time Associated Diagnosis Comments MR BREAST BILATERAL WITHOUT AND WITH IV CONTRAST RAD - Routine (most inpatients and all outpatients) 05/18/2022 7:26 PM TESTER WASTE DISPOSAL LEAKAGE Density Breast Symptoms Breast Implant Breast Status Post documented in this encounter Results * MR Breast Bilateral without and with IV Contrast (05/18/2022 7:26 PM TESTER WASTE DISPOSAL LEAKAGE) Anatomical Region Laterality Modality Breast, Breast Imaging RST L OS, Breast Imaging ARZ LOS, Breast Imaging FLA LOS Bilateral Magnetic Resonance 05/21/2022 7:28 AM TESTER WASTE DISPOSAL LEAKAGE Impressions 05/21/2022 8:33 AM TESTER WASTE DISPOSAL LEAKAGE No MRI findings of malignancy. RECOMMENDATION: ??Clinical Management Recommendation continued clinical management of the patient's right breast pain. ASSESSMENT: ??BI-RADS: 2: Benign. Narrative 05/21/2022 8:33 AM TESTER WASTE DISPOSAL LEAKAGE EXAM: ??MR BREAST BILATERAL WITHOUT AND WITH [...] mL not recommended. Given 05/18/2022 7:17 PM TESTER WASTE DISPOSAL LEAKAGE 8 mL sodium chloride (PF) 0.9 % injection 1-100 mL 1-100 mL, intravenous, Once, On Sat05/18/22 at 1830, For 1 dose, Imaging Protocol Orders Given 05/18/2022 7:17 PM TESTER WASTE DISPOSAL LEAKAGE 20 mL documented in this encounter Additional Health Concerns Assessment Noted Time PHQ-9 Depression Total Score: 3 03/12/20 19 10:56 AM TESTER WASTE DISPOSAL LEAKAGE documented as of this encounter
--- NOTE | 2023-04-19 08:00 | CRLHL7_ITS ---
For Patients: As a result of the 21st Century Cures Act, medical imaging exams and procedure reports are released immediately into your electronic medical record. You may view this report before your referring provider. If you have questions, please contact your health care provider. INDICATION: Pulmonary nodules. Follow up. TECHNIQUE: Volumetric helical scanning of the thorax was performed without IV contrast material. Coronal and sagittal reconstructions were obtained. COMPARISON: Chest CT 03/01/2022 FINDINGS: No new nodule is evident. On image 31 of series 3, a noncalcified 7 mm left upper lobe nodule is demonstrated. This is unchanged from the prior exam. Noncalcified 4 mm left upper lobe nodules are demonstrated on images 34, 38 and 42. Benign change, noncalcified 4 mm subpleural right middle lobe nodule is noted on image 50. The lungs are clear. There is no significant airway abnormality. No pleural effusion is demonstrated. There is no mediastinal or hilar adenopathy. A 7 mm left thyroid lobe nodule is noted. The heart size is normal. Images of the upper abdomen are unremarkable. IMPRESSION: 1. Stable noncalcified pulmonary nodules, the largest measuring up to 7 mm. Follow up in accordance with Fleischner Society Guidelines (see below) is recommended. No new nodule evident. 2. 7 mm left thyroid lobe nodule. FLEISCHNER SOCIETY GUIDELINES: LOW RISK: - nodule less than 6 mm: No follow-up needed. - nodule 6-8 mm: Initial follow-up CT at 6-12 months and then at 18-24 months if no change. - nodule greater than 8 mm: Follow-up CTs at around 3, 9, and 24 months. Dynamic contrast-enhanced CT, PET, and/or biopsy. MULTIPLE LOW RISK: - nodule less than 6 mm: No follow-up needed. - nodule 6-8 mm: CT at 3-6 months, then consider CT at 18-24 months. - nodule greater than 8 mm: CT at 3-6 months, then consider CT at 18-24 months. HIGH RISK: - nodule less than 6 mm: Follow-up at 12 months. If no change, no further imaging needed. - nodule 6-8 mm: Initial follow-up CT at 3-6 months and then at 9-12 and 24 months if no change. - nodule greater than 8 mm: Follow-up CTs at around 3, 9, and 24 months. Dynamic contrast-enhanced CT, PET, and/or biopsy. MULTIPLE HIGH RISK: - nodule less than 6 mm: Optional CT at 12 months. - nodule 6-8 mm: CT at 3-6 months, then at 18-24 months. - nodule greater than 8 mm: CT at 3-6 months, then at 18-24 months. HIGH RISK is defined as one or more of the following: - at least 20 pack-year smoking history or equivalent second-hand exposure. - personal history of cancer or family history of lung cancer. - occupational exposure (asbestos, beryllium, silica, uranium, radon) - chronic interstitial/fibrotic lung disease. Please note that all CT scans at this facility use dose modulation, iterative reconstruction, and/or weight-based dosing when appropriate to reduce radiation dose to as low as reasonably achievable. Dictated by Dimitry Srivastava MD @ 04/19/2023 11:51:02 AM (Electronically Signed)
== END 2023-04-19 07:49 | disposition home or self-care (01) ==
LOC: CT 07:48
PROVIDERS: PCP Internal Medicine; Visit Provider Internal Medicine
DX: R91.1 Solitary pulmonary nodule (principal); E04.1 Nontoxic single thyroid nodule; Z87.891 Personal history of nicotine dependence
CPT/HCPCS: 71250

== ENCOUNTER 2024-01-03 08:45 | Outpatient (CLI) | payer BC, SELFPAY ==
--- OUTSIDE RECORDS SUMMARY | 2024-01-04 14:50 | XMS_ITS | Encounter Summary ---
Author Organization [facility] Address [address] [place] [phone] Care Team Providers Care Area Operations Director Name Role Phone Unavailable Primary Care Provider Unavailabl e Reason for Referral * Outpatient (Routine) - Authorized Specialty Diagnoses / Procedures Referred By Contrissa t Referred To Contact Dermatology Mitchel Recinos M.D., M.S. [address] [place] [address] Phone: tel: fax: [facility] Referral ID Status Reason Start Date Expiration Date V isits Requested Visits Authorized [id number] Authorized 11/26/2023 05/27/2025 1 1 Scheduling Instructions Schedule with Grisel * Outpatient (Routine) - Authorized Specialty Diagnoses / Procedures Referred By Contac t Referred To Contact Dermatology Diagnoses Cancer Skin Squamous Cell Personal History Procedures Professional Photography Services Mitchel Recinos M.D., M.S. [address] [place] [phone] Phone: tel: fax: [facility] Referral ID Status Reason Start Date Expiration Date V isits Requested Visits Authorized [id number] Authorized 11/26/2023 11/25/2024 1 1 Reason for Visit * Outpatient (Routine) - Closed Specialty Diagnoses / Procedures Referred By Joann saldana Referred To Contact Dermatology Mitchel Recinos M.D., M.S. [address] [place] [phone] Phone: tel: fax: Mitchel Recinos M.D., M.S. [address] [place] [phone] Phone: tel: fax: Referral ID Status Reason Start Date Expiration Date Visits Re quested Visits Authorized [id number] Closed 05/09/2023 11/07/2024 1 1 Encounter Details Date Type Department Care Team (Late st Contact Info) Description 11/26/2023 3:00 PM CDT Office Visit Department of Dermatology in [place], [place] [address] [place] [phone] Mitchel Recinos M.D., M.S. [address] [place] [phone] Cancer Skin Squamous Cell Personal History (Primary Dx) Discharge Disposition: Home or Self Care Social History Tobacco Use Types Packs/Day Years Used Date Smoking Tobacco: Never Passive Smoke Exposure: Past Smokeless Tobacco: Never Passive Exposure Comments: ildhood and previous place of employment in adulthood (in her early 20's) Alcohol Use Standard Drinks/Week Comments Yes 1 (1 standard drink = 0.6 oz pur e alcohol) Approx once per month [facility] Utilities Answer Date Recorded In the [...] ways by your partner or ex-partner? No 12 /04/2021 Within the last year, have y ou [...] How often do you attend chur or restorationist services? 1 to 4 times per year 02/23/2022 Do you belong to any clubs o r organizations such as mandaeism groups, unions, fraternal or athletic groups, or [...] Answer Date Recorded PHQ-2 Score 2 03/12/2019 [facility] [place] of Occupat ional Health - Occupational Stress [...] living? No 04/10/2023 Nutrition Answer Date Recorded On average, how many serving s of [...] your living situation today? I have a [facility] place to live 04/10/2023 Education Answer Date Recorded What is the highest level of school you have completed or the highest degree you have received? 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 - 11/26/2023 3:00 PM CDT REFERRING PROVIDER Mitchel Recinos M.D., M.S. [address] [place] [phone] CHIEF COMPLAINT [id number] well-differentiated squamous cell carcinoma-left eyelid HISTORY OF THE PRESENT ILLNESS Ms. Cathryn Lopez is a pleasant 43 y.o. 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 Ms. Lopez comes in today for a follow-up examination. 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 Skin: Examination performed of the left eyelid, and left malar cheek per patient's request. Examination reveals Bowie type II skin. There is a well-healed surgical site involving the left lowereyelid with no signs of recurrence. There is an erythematous hyperkeratotic papule involving the left malar cheek measuring approximately 4 mm in diameter. No other lesions of concern identified. 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 Recommendations as per below. #2 Actinic keratosis-left malar cheek After discussing options Ms. Lopez we would like to apply Efudex twice daily x3 weeks and then monitor. This is very reasonable. We will look forward to seeing how this does during her next skin examination in a year's time. #3 Fair complected individual #4 Increased risk for future skin cancers Ms. Lopez should sun protect daily and monitor her skin regularly. Full skin examinations in the Dermatology Department would be recommended on an annual basis. All questions addressed and answeredtoday, and Ms. Lopez is welcome to call should any questions or concerns arise in the future. PATIENT EDUCATION Ready to learn. No apparent learning barriers were identified. Learning preferences include listening. Explained diagnosis and treatment plan; patient/guardian of patient expressed understanding of the content. documented in this encounter Plan of Treatment Scheduled Orders Name Type Priority Associated Diagnoses Orde r Schedule Professional Photography Services Procedures Routine Cancer Skin Squamous Cell Personal History Ordered: 11/26/2023 Scheduled Referrals Name Type Priority Associated Diagnoses Order Schedule Dermatology office visit (clinic) Outpatient Referral Routine Expected: 11/25/2024, Expires: 02/24/2025 documented as of this encounter Visit Diagnoses Diagnosis Cancer Skin Squamous Cell Personal History- Primary documented in this encounter Additional Health Concerns Assessment Noted Time PHQ-9 Depression Total Score: 3 03/12/20 19 10:56 AM HAT BODY INSPECTOR documented as of this encounter
--- OUTSIDE RECORDS SUMMARY | 2024-01-04 14:50 | XMS_ITS | Referral Summary ---
Author Organization [facility] Address [address] [place] [address] Care Team Providers Care Linseed Oil Order Filler Name Role Phone Unavailable Primary Care Provider Unavailabl e Source Comments Patient records contain information from all sites at [facility]. For routine questions regarding patient records, call [phone] during business hours, M-F 8:00 AM - 5:00 PM Central Time. Record requests for emergency care only can be directed to [phone] at any time.[facility] Encounters Date Type Department Care Team Description 11/26/2023 Ancillary Procedure Department of Dermatology 11/26/2023 3:00 PM CDT Office Visit Department of Dermatology in [place], [place] [address] [place] [address] Mitchel Recinos M.D., M.S. Cancer Skin Squamous Cell Personal History (Primary Dx) Discharge Disposition: Home or Self Care from Last 3 Months Allergies Active Allergy Reactions Criticality Noted Date Comments [place] Pollen Other (see comments) Medium 09/02/2018 Running nose Medications * This document contains information received from the source organization and may not represent a complete record from that organization. triamcinolone (KENALOG) 0.1 % cream Apply 1 application topically as needed. 11 9 Active pimecrolimus (ELIDEL) 1 % cream Apply 1 application topically as needed. 1 9 Active VENTOLIN HFA 90 mcg/actuation inhaler Take 2 puffs by mouth every 4 (four) hours as needed. 0 9 Active loratadine (CLARITIN) 10 mg tablet Take 10 mg by mouth daily. Active budesonide-form oteroL (SYMBICORT) 160-4.5 mcg/actuation inhaler Inhale 2 puffs as needed. Rinse mouth with water after use to reduce aftertaste and incidence of candidiasis. Do not swallow. Active clobetasoL (TEMOVATE) 0.05 % ointment Use 3 times weekly to upper vulva and 2 times weekly to perianal tissues. 60 g 3 4 Active ketoconazole (NIZORAL) 2 % shampooIndicati ons:Intertrigo, Dermatitis Seborrheic Apply 1 Application topically 3 (three) times a week. Apply to damp skin, lather, leave on 5 minutes, and rinse 120 mL 11 4 Active ketoconazole (Nizoral) 2 % creamIndication s:Intertrigo,De rmatitis Seborrheic Apply 1 Application topically 2 (two) times a day. Apply to areas with intertrigo for seborrheic dermatitis until they resolve 60 g 3 4 Active Hospital, Clinic, or Other Facility Administered Medication Ordered Dose Route Frequency Start Date End Date Status cephalexin capsule 2,000 mg (KEFLEX)Indications:Prophylax is, surgical 2000 mg oral Once 05/09/2023 Active Active Problems Problem Noted Date Diagnosed Date Hysterectomy Abdominal Status Post 01/28/2020 Overview (01/28/2020): Added automatically from request for surgery [id number] Adenocarcinoma Cervix In Situ (Severe Dysplasia) 01/03/2020 Post Traumatic Stress Disorder Unspecified 08/26 Abnormal Pap Smear Cervix 08/15/2018 Overview (08/15/2018): Added automatically from request for surgery [id number] Atypical Glandular Cells Uncertain Significance 08/15/2018 Overview (08/15/2018): Added automatically from request for surgery [id number] Sinusitis Chronic 03/16/2016 Polyp Nasal 12/19/2015 Wheezing 12/19/2015 Loss Hearing Conductive Unilateral 12/16/2015 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 Stone Ureteral 08/25/2009 Asthma NOS 03/25/1994 Immunizations Name Administration Dates Next Due 9vHPV 03/02/2022,06/21/2020,04/22/2020 DTaP (Infanrix, Tripedia) 06/13/1983 H1N1 Inj 01/19/2009 HepB Adult 07/16/2022(Deferred: Other - check with pcp) Influenza, Unspecified 07/16/2022(Deferred: Suha ent Refused) Polio, Unspecified 06/13/1983 SARS-COV-2 (COVID-19) - PFIZ ER (Discontinued)(12 years or older) 07/16/2022(Deferred: Patient decision) Tdap 07/10/2018 influenza vaccine quad (FLUZONE/FLUARIX) (6 months and older)(PF) 01/21/2020,09/02/2018,01/19/2009 Social History Tobacco Use Types Packs/Day Years Used Date Smoking Tobacco: Never Passive Smoke Exposure: Past Smokeless Tobacco: Never Tobacco Cessation:Counseling Given: Not Answered Passive Exposure Comments:Childhood and previous place of employment in adulthood (in her early 20's) Alcohol Use Standard Drinks/Week Comments Yes 1 (1 standard drink = 0.6 oz pur e alcohol) Approx once per month [facility] Utilities Answer Date Recorded In the past 12 months has e [employer], gas, oil, or water theeventwall threatened to shut off services in your [...] How often do you attend chur or church services? 1 to 4 times per year 02/23/2022 Do you belong to any clubs o r organizations such as latter day groups, unions, fraternal or athletic groups, or [...] Date Recorded PHQ-2 Score 2 03/12/2019 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 Not on file Not on file Last Filed Vital Signs Vital Sign Reading Time Taken Comments Blood Pressure 146/96 05/09/2023 8:04 AM MANAGER ACCOUNT MANAGEMENT Pulse 91 05/09/2023 8:04 AM MANAGER ACCOUNT MANAGEMENT Temperature 36.6 ??C (97.9 ??F) 04/06/2020 9:19 AM CS T Respiratory Rate 16 05/18/2022 7:58 PM MANAGER ACCOUNT MANAGEMENT Oxygen Saturation 96% 05/18/2022 7:58 PM MANAGER ACCOUNT MANAGEMENT Inhaled Oxygen Concentration - - Weight 83.2 kg (183 lb 6.8 oz) 07/20/2022 3:51 P M CDT Height 165.9 cm (5' 5.32) 02/23/2022 12:[address] Body Mass Index 30.23 02/23/2022 12:47 PM MANAGER ACCOUNT MANAGEMENT Plan of Treatment Not on file Medical Devices Implanted Type Area Store Merchandiser Device Identifier Shelf Expiration Date Model / Serial / Lot Breast Implant Breast Implant Bilateral: Breast Ear-Dornhoffer [place] Partial Windows - Cruz [id number] Implanted:Qty: 1 on 02/13/2016 Ear Implant Other/Legacy - See Implant Description Kandi Reniac 687 / / Description:Device Manufactu rer - Kandi Reniac. Body Location - Other. Right. Device Status Text - AUD [facility]-[id number]. Titanium Dornhoffer implant line PORP: MR Conditional 1.5T or 3T scanning. First level operating mode. Updated by Ruth Castillo, 03/08/22. Procedures Procedure Name Priority Date/Time Associated Diagnosis Comments DERMATOLOGY IMAGE EXAM Routine 11/26/2023 12:00 AM CDT BI BREAST SCREENING BILATERAL WITH TOMOSYNTHESIS RAD - Routine (most inpatients and all outpatients) 03/27/2023 2:42 PM MANAGER ACCOUNT MANAGEMENT Screening Mammogram Breast Cancer GLUCOSE, FASTING, S/P Routine 01/21/2020 10:45 AM CDT Counseling Preventive HCV AB SCRN W/REFLEX TO HCV PCR, S Routine 01/21/2020 10:45 AM CDT Counseling Preventive LIPID PANEL, S Routine 01/21/2020 10:45 AM CDT Counseling Preventive from Last 3 Months or Most Recently Relevant to Health Maintenance Results * eye, left lower eyelid margin 113 Mohs micrographic surgery-Dermatology Image Exam (11/26/2023 12:00 AM CDT) Narrative IIMS - 11/26/2023 3:39 PM CDT This order has been created and auto-finalized to support the import of images acquired without order. The clinical documentation to support these images can be found on the encounter that produced images. us Provider Not In System IMG NON RAD IMAGING PROCE DURES Final Result IIMS NA * BI Breast Screening Bilateral with Tomosynthesis (03/27/2023 2:42 PM MANAGER ACCOUNT MANAGEMENT) Anatomical Region Laterality Modality Breast, Breast Imaging RST L OS, Breast Imaging ARZ LOS, Breast Imaging FLA LOS Bilateral Mammography Impressions 03/28/2023 9:18 AM MANAGER ACCOUNT MANAGEMENT Negative. RECOMMENDATION: ??Annual Screening Mammogram ASSESSMENT: ??BI-RADS: 1: Negative. Narrative 03/28/2023 9:18 AM MANAGER ACCOUNT MANAGEMENT EXAM: ??BI BREAST SCREENING BILATERAL WITH TOMOSYNTHESIS [...] ASSESSMENT: BI-RADS: 1: Negative. Jahaira John M.D. [facility] [place] PROCEDURES Final Re sult * (ABNORMAL) Lipid Panel (01/21/2020 10:45 AM CDT) Cholesterol, Total 215(H) mg/dL 2019 11:40 AM CDT DTL Comment: ----REFERENCE VALUE---- Desirable: < 200 Borderline high: 200 - 239 High: > or = 240 Triglycerides 91 mg/dL 01/21/2020 11:40 AM CDT DTL Comment: ----REFERENCE VALUE---- Normal: <150 Borderline high: 150-199 High: 200-499 Very high: > or =500 Cholesterol, HDL, S 47(L) >=50 mg/dL 01/21/2020 11:40 AM CDT DTL Calculated LDL 150(H) mg/dL 01/21/2020 11:40 AM CDT DTL Comment: ----REFERENCE VALUE---- Desirable: <100 Above Desirable: 100-129 Borderline high: 130-159 High: 160-189 Very high: > or =190 Cholesterol, Non-HDL, Calculated 168(H) mg/dL 01/21/2020 11:40 AM CDT DTL Comment: ----REFERENCE VALUE---- Desirable: <130 Above Desirable: 130-159 Borderline high: 160-189 High: 190-219 Very high: > or =220 Blood (Blood, Venous) 01/21/2020 10:45 AM CDT 01/21/2020 11:21 AM CDT Olya Tesfaye APRN, C.N.P., R.N. LAB BLOOD ADD-O N Final Result Performing Organization Address City/[facility]/ZIP Co de Phone Number [facility] [address] [place] [address], [facility] [address] [place] [address] * HCV Ab Scrn w/Reflex to HCV PCR, Serum (01/21/2020 10:45 AM CDT) Pathologist [facility] [place] HCV Ab Screen, S Negative Negative 01/21/2020 3:41 PM CDT [facility] Comment:Zvuhry-wy-zodjyw rat io is <1.00. Blood (Blood, Venous) 01/21/2020 10:45 AM CDT 01/21/2020 2:03 PM CDT Olya Tesfaye APRN, C.N.P., R.N. LAB MICROBIOLOG Y - BLOOD ORDERABLES Final Result Performing Organization Address City/[facility]/ZIP Co de Phone Number [facility] [address] [place] [address] [facility] Dept. of Laboratory Medicine and Pathology [address] [place] [address] * Glucose, Fasting (01/21/2020 10:45 AM CDT) Glucose, P 93 70 - 100 mg/dL 01/21/2020 11:36 AM CDT DTL Last Intake 15 hr 01/21/2020 11:21 AM CDT DTL Blood (Blood, Venous) 01/21/2020 10:45 AM CDT 01/21/2020 11:21 AM CDT Olya Tesfaye APRN, C.N.P., R.N. LAB BLOOD NON A DD-ON Final Result [facility] [address] [place] [address], [place] [facility] [address] [place] [address] from Last 3 Months or Most Recently Relevant to Health Maintenance Insurance [facility] [place] [address] Advance Directives For more information, please contact: [phone] Documents on File Type Date Recorded Patient Technical Communicator Expl anation Advance Directives 11/25/2018 9:04 AM Healt h Care Directive * Full Code (Latest Code Status on File) Date Activated Date Inactivated Comments 11/25/2018 5:47 PM 11/26/2018 1:07 AM Question Answer Comments Full Code: Discussed * Full Code Date Activated Date Inactivated Comments 11/25/2018 7:44 AM 11/25/2018 5:47 PM Question Answer Comments Full Code: Discussed * Full Code Date Activated Date Inactivated Comments 11/05/2018 6:55 AM 11/05/2018 12:31 PM Question Answer Comments Full Code: Discussed * Full Code Date Activated Date Inactivated Comments 08/21/2018 6:47 AM 08/21/2018 12:34 PM Question Answer Comments Full Code: Discussed Healthcare Agents on File Name Relationship Healthcare Agent [facility] Communication J Luis Vazquez Health Care Agent Margaret Zarate re Agent
--- OUTSIDE RECORDS SUMMARY | 2024-01-04 14:50 | XMS_ITS | Clinical Summary ---
Author Organization [facility] Address [address] [place] [address] Care Team Providers Care Laborer Sawmill Name Role Phone Unavailable Primary Care Provider Unavailabl e Source Comments Patient records contain information from all sites at [facility]. For routine questions regarding patient records, call [phone] during business hours, M-F 8:00 AM - 5:00 PM Central Time. Record requests for emergency care only can be directed to [phone] at any time.[facility] Allergies Active Allergy Reactions Criticality Noted Date Comments [place] Pollen Other (see comments) Medium 09/02/2018 Running [...] (01/28/2020): Added automatically from request for surgery [id number] Adenocarcinoma Cervix In Situ (Severe Dysplasia) 01/03/2020 Post Traumatic Stress Disorder Unspecified 08/26 Abnormal Pap Smear Cervix 08/15/2018 Overview (08/15/2018): Added automatically from request for surgery [id number] Atypical Glandular Cells Uncertain Significance 08/15/2018 Overview (08/15/2018): Added automatically from request for surgery [id number] Sinusitis Chronic 03/16/2016 Polyp Nasal 12/19/2015 Wheezing 12/19/2015 Loss Hearing Conductive Unilateral 12/16/2015 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 Cancer Skin Squamous Cell Personal History (Primary Dx) Discharge Disposition: Home or Self Care 11/26/2023 Ancillary Procedure Department of Dermatology from Last 3 Months Immunizations Name Administration [...] pur e alcohol) Approx once per month [facility] Utilities Answer Date Recorded In the past 12 months has th e electric, gas, oil, or water company [...] How often do you attend chur or taoism services? 1 to 4 times [...] Answer Date Recorded PHQ-2 Score 2 03/12/2019 [facility] of Occupat ional Health - [...] your living situation today? I have a [facility] place to live 04/10/2023 Education Answer Date Recorded What is the highest level of school you have completed or the highest degree you have received? 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 Not on file Not on file Last Filed Vital Signs Vital Sign Reading Time Taken Comments Blood Pressure 146/96 05/09/2023 8:04 AM SUPERVISOR ALUMINUM FABRICATION Pulse 91 05/09/2023 8:04 AM SUPERVISOR ALUMINUM FABRICATION Temperature 36.6 ??C (97.9 ??F) 04/06/2020 9:19 AM CS T Respiratory Rate 16 05/18/2022 7:58 PM SUPERVISOR ALUMINUM FABRICATION Oxygen Saturation 96% 05/18/2022 7:58 PM SUPERVISOR ALUMINUM FABRICATION Inhaled Oxygen Concentration - - Weight 83.2 kg (183 lb 6.8 oz) 07/20/2022 3:51 P M CDT Height 165.9 cm (5' 5.32) 02/23/2022 12:[address] Body Mass Index 30.23 02/23/2022 12:47 PM SUPERVISOR ALUMINUM FABRICATION Plan of Treatment Health Maintenance Due Date Last Done Comments CT Colonography 1978 Cologuard 1978 Colonoscopy 1978 Colorectal Cancer Screening 1978 FIT 1978 Pneumococcal vaccine (0-64 y ears) (1 of 2 - PCV) 1984 Hepatitis B Vaccines (1 of 3 - 19+ 3-dose series) 1997 Asthma Action Plan 11/25/2018 Asthma Control Test Questionnaire 11/25/2018 Asthma Management/Exacerbati on Questionnaire (AMQ/AEQ) 11/25/2018 Fasting Glucose for Diabetes Screening 01/20/2023 01/21/2020 Depression Screening (Annual PHQ-2) 03/25/2023 COVID-19 Vaccine (1 - 2023-2 5 season) 2023 Influenza Vaccine (#1) 2023 , 09/02/2018, 01/19/2009 Mammogram 03/27/2024 03/27/2023, 04/26, 03/02/2022, Additional history exists Lipid (Cholesterol) Screening 01/20/2025 01/21/2020 DTaP,Tdap,and Td Vaccines (3 - Td or Tdap) 07/10/2028 07/10/2018, 06/13/1983 Hepatitis C Screening Completed 01/21/2020 HPV Vaccines Completed 03/02/2022, 05/25, 04/22/2020 Medical Devices Implanted Type Area Fry Cook Device Identifier Shelf Expiration Date Model / Serial / Lot Breast Implant Breast Implant Bilateral: Breast Ear-Dornhoffer [place] Partial Windows - [place] [id number] Implanted:Qty: 1 on 02/13/2016 Ear Implant Other/Legacy - See Implant Description Kandi Towi 687 / / Description:Device Manufactu rer - [employer]. Body Location - Other. Right. Device Status Text - AUD [facility]-[id number]. Titanium Dornhoffer implant line PORP: MR Conditional 1.5T or 3T scanning. First level operating mode. Updated by Ruth Castillo, 03/08/22. Procedures Procedure Name Priority Date/Time Associated Diagnosis Comments DERMATOLOGY IMAGE EXAM Routine 11/26/2023 12:00 AM CDT BI BREAST SCREENING BILATERAL WITH TOMOSYNTHESIS RAD - Routine (most inpatients and all outpatients) 03/27/2023 2:42 PM SUPERVISOR ALUMINUM FABRICATION Screening Mammogram Breast Cancer GLUCOSE, FASTING, S/P [...] Screening Bilateral with Tomosynthesis (03/27/2023 2:42 PM SUPERVISOR ALUMINUM FABRICATION) Anatomical Region Laterality Modality Breast, Breast Imaging RST L OS, Breast Imaging ARZ LOS, Breast Imaging FLA LOS Bilateral Mammography Impressions 03/28/2023 9:18 AM SUPERVISOR ALUMINUM FABRICATION Negative. RECOMMENDATION: ??Annual Screening Mammogram ASSESSMENT: ??BI-RADS: 1: Negative. Narrative 03/28/2023 9:18 AM SUPERVISOR ALUMINUM FABRICATION EXAM: ??BI BREAST SCREENING BILATERAL WITH TOMOSYNTHESIS [...] ASSESSMENT: BI-RADS: 1: Negative. Jahaira John M.D. IM BI PROCEDURES Final Re sult * (ABNORMAL) [...] ADD-O N Final Result Performing Organization Address [facility] Co de Phone Number [facility] [address] [place] [address], [facility] [address] [place] [address] * HCV Ab Scrn w/Reflex to HCV PCR, Serum (01/21/2020 10:45 AM CDT) Pathologist [facility] HCV Ab Screen, S Negative Negative 01/21/2020 3:41 PM CDT [facility] Comment:Sclryd-xb-mrdgkh rat io is <1.00. Blood (Blood, Venous) 01/21/2020 10:45 AM CDT 01/21/2020 2:03 PM CDT Olya Tefsaye APRN, C.N.P., R.N. LAB MICROBIOLOG Y - BLOOD ORDERABLES Final Result Performing Organization Address City/[facility]/ZIP Co de Phone Number [facility] [address] [place] [address] [facility] Dept. of Laboratory Medicine and Pathology [address] [place] [address] * Glucose, Fasting (01/21/2020 10:45 AM CDT) Glucose, P 93 70 - 100 mg/dL 01/21/2020 11:36 AM CDT DTL Last Intake 15 hr 01/21/2020 11:21 AM CDT DTL Blood (Blood, Venous) 01/21/2020 10:45 AM CDT 01/21/2020 11:21 AM CDT Olya Tesfaye APRN, C.N.P., R.N. LAB BLOOD NON A DD-ON Final Result [facility] [address] [place] [address], [facility] DTL [facility] [address] [place] [address] from Last 3 Months or Most Recently Relevant to Health Maintenance Insurance [facility] [address] Advance Directives For more information, please contact: [phone] Documents on File Type Date Recorded Patient Photolithographer Expl anation Advance Directives 11/25/2018 9:04 AM [...] Agents on File Name Relationship Healthcare Agent [facility] Communication J Luis Vazquez Health Care Agent Margaret Zarate Agent
--- OUTSIDE RECORDS SUMMARY | 2024-01-04 14:50 | XMS_ITS | Encounter Summary ---
Author Organization [facility] Address [address] [place] [address] Care Team Providers Care Cleaning Maid Name Role Phone Unavailable Primary Care Provider Unavailabl e Encounter Details Date Type Department Care Team (Late st Contact Info) Description 11/26/2023 Ancillary Procedure Department of Dermatology Social History Tobacco Use Types Packs/Day Years Used Date Smoking Tobacco: Never Passive Smoke Exposure: Past Smokeless Tobacco: Never Passive Exposure Comments:Jose Alberto ildhood and previous place of employment in adulthood (in her early 20's) Alcohol Use Standard Drinks/Week Comments Yes 1 (1 standard drink = 0.6 oz pur e alcohol) Approx once per month [facility] Utilities Answer Date Recorded In the past [...] often do you attend chur ch or episcopalian services? 1 to 4 times per year 02/23/2022 Do you belong to any clubs o r organizations such as tenriism groups, unions, fraternal or athletic groups, or [...] Answer Date Recorded PHQ-2 Score 2 03/12/2019 [facility] Answer Date [...] your living situation today? I have a [facility] place to live 04/10/2023 Education Answer Date Recorded What is the highest level of school you have completed or the highest degree you have received? 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 Not on file Not on file documented as of this encounter Plan of Treatment Not on file documented as of this encounter Procedures Procedure Name Priority Date/Time Associated Diagnosis Comments DERMATOLOGY IMAGE EXAM Routine 11/26/2023 12:00 AM CDT documented in this encounter Results * eye, left lower eyelid margin [...] In System IMG NON RAD IMAGING PROCE CRISTINA Final Result IIMS NA documented in this encounter Visit Diagnoses Not on filedocumented in this encounter Additional Health Concerns Assessment Noted Time PHQ-9 Depression Total Score: 3 03/12/20 19 10:56 AM DIRECT MARKETING SPECIALIST documented as of this encounter
--- OUTSIDE RECORDS SUMMARY | 2024-01-04 14:50 | XMS_ITS ---
Author Organization [facility] Address [address] [place] [address] Care Team Providers Care Briquette Maker Name Role Phone Unavailable Unavailable Unavailable Surgery Details Not on file Complications Check Surgery Details section. Procedure Estimated Blood Loss Check Surgery Details section. Procedure Findings Check Surgery Details section. Procedure Specimens Taken Check Surgery Details section.
== END 2024-01-03 08:46 | disposition home or self-care (01) ==
LOC: NFLDREF 01-04 14:48
PROVIDERS: PCP Internal Medicine; Referring Provider Internal Medicine; Visit Provider Physician Assistant
DX: N39.0 Urinary tract infection, site not specified (principal); B96.20 Unspecified Escherichia coli [E. coli] as the cause of diseases classified elsewhere
CPT/HCPCS: 87086; 87186